=== PATIENT | male | born 1990 | race Caucasian/White ===

== ENCOUNTER 2023-08-08 12:08 | Emergency (ER) | payer BC, SELFPAY ==
[2023-08-08] VITALS (16 sets, daily range): BP systolic 156; BP diastolic 92; PULSE 79; RESP 20; TEMP 36.1; O2SAT 95–100
--- NOTE | 2023-08-08 12:22 | ED_ITS ---
HPI - General Adult General Time Seen by Provider: 12:22 Date Seen: 08/08/23 Chief complaint: Arrhythmia/Palpitations Stated complaint: heart issues,weakness Time Seen by Provider: 08/08/23 12:22 Source: patient and RN notes reviewed Mode of arrival: ambulatory Limitations: no limitations History of Present Illness HPI narrative: Dl is a very pleasant 33-year-old gentleman with history of tetralogy of Fallot repaired at age 1 who comes to the emergency room with symptoms of rapid heart rate and lightheadedness and dizziness. Chest and notes that approximate ly a 45 minutes prior to his arrival here he experienced 15 minutes of a strange pulse. He states that he felt like something was not right and took his pulse which was in the 50s. He describes his heart beating very hard. He then notes that he felt a vibration in his ears and was very tired and felt like he was sleepy. He thought this was unusual as he had just gotten up any slept well last night. Suddenly he states that his heart rate went way above 100 and he became very lightheaded and his hands were pale and he was dizzy. He states his heart rhythm felt weird at that time. He did not experience any chest tightness shortness of breath he has not had a cough for any ill exposures. He has not had this happen to him in the past. He last had cardiac evaluation when he was in his 20s. This took place at [facility]. He notes that the patch placed for his ?hole in the car heart? I assume this to be VSD did not entirely take and thus he still has a murmur. He has not on any blood thinners. He has not followed up since that time. Patient denies shortness of breath or cough during any of this episode which had resolved upon his arrival. Patient denies drug use or alcohol use. Currently on Suboxone. No other abnormalities changes in medication in the recent past. Related Data Home Medications Medication Instructions Recorded Confirmed buprenorphine 2 mg-naloxone 0.5 mg film sublingual 08/08/23 sublingual film Allergies Allergy/AdvReac Type Severity Reaction Status Date / Time amoxicillin [From Augmentin] Allergy Unknown Verified 08/08/23 12:27 clavulanic acid Allergy Unknown Verified 08/08/23 12:27 [From Augmentin] shellfish derived Allergy Unknown Verified 04/07/24 12:27 Review of Systems Status of ROS: Reports: 10 or more systems reviewed and unremarkable except as noted in History and below Const: Reports: fatigue; Denies: fever or chills Eyes: Denies: change in vision ENMT: Denies: throat pain or neck pain Cardio: Reports: palpitations and lightheadedness; Denies: chest pain, swelling of feet/ankles or shortness of breath with exertion Resp: Denies: shortness of breath or cough GI: Denies: abdominal pain, nausea or vomiting : Denies: painful urination Musculo: Denies: back pain or neck pain Neuro: Denies: headache Endo: Reports: fatigue Exam Narrative: Exam Narrative: Patient is alert and oriented. Very pleasant gentleman in no acute distress. External ears eyes nose clear. Neck is supple without lymphadenopathy. Face symmetrical. Heart with regular rate and rhythm. A holosystolic murmur is noted. I do think that it has occur central type of quality best heard at the left upper sternal border. No additional heart sounds are noted. Lungs are clear bilaterally. No evidence of increased fluid retention at this time. Lower extremities are without edema. Pedal pulses are symmetrical. Abdominal exam shows soft nontender no pulsating mass. Moving all extremities. Const: Vital Signs, click to edit/add: Vital Signs - 24 hr 08/08/23 12:19 08/08/23 12:20 08/08/23 12:20 Temperature 97.0 F L Pulse Rate [Pulse Oximeter] 79 Respiratory Rate 20 Blood Pressure [Ri ght Upper Arm] 156/92 H Pulse Oximetry 100 99 99 Oxygen Delivery Me thod Room Air 08/08/23 12:30 08/08/23 12:31 08/08/23 12:45 Temperature Pulse Rate [Pulse Oximeter] Respiratory Rate Blood Pressure [Ri ght Upper Arm] Pulse Oximetry 100 100 97 Oxygen Delivery Me thod 08/08/23 13:00 08/08/23 13:02 08/08/23 13:15 Temperature Pulse Rate [Pulse Oximeter] Respiratory Rate Blood Pressure [Ri ght Upper Arm] Pulse Oximetry 100 100 100 Oxygen Delivery Me thod 08/08/23 13:30 08/08/23 13:31 08/08/23 13:45 Temperature Pulse Rate [Pulse Oximeter] Respiratory Rate Blood Pressure [Ri ght Upper Arm] Pulse Oximetry 100 100 99 Oxygen Delivery Me thod 08/08/23 14:00 08/08/23 14:01 08/08/23 14:15 Temperature Pulse Rate [Pulse Oximeter] Respiratory Rate Blood Pressure [Ri ght Upper Arm] Pulse Oximetry 98 98 97 Oxygen Delivery Me thod 08/08/23 14:30 08/08/23 14:45 Temperature Pulse Rate [Pulse Oximeter] Respiratory Rate Blood Pressure [Ri ght Upper Arm] Pulse Oximetry 96 95 Oxygen Delivery Me thod Documenting provider has reviewed patient's vital signs: yes Course Course ED Course: At this time differential diagnosis includes but is not limited to atrial fibrillation, atrial flutter, episodic SVT, ventricular tachycardia or other arrhythmia, anxiety, biliary colic, COVID, dehydration. At this time will place IV give fluids. Also will check CBC, comprehensive panel, CRP, troponin, EKG, chest x-ray. Reevaluation(s) Reevaluation #1: I was alerted by nursing staff that patient had experienced pain at approximately 1330 hours. I do speak with Dl he describes a heaviness in his chest. He seems much more anxious and significant other is now present. Vital signs are reassuring although blood pressure has climbed to 156 systolic. He is not tachycardic. Will repeat EKG, give aspirin 324 mg p.o. and offer Ativan 0.5 mg. Will also reset clock in terms of troponin Reevaluation #2: Patient notes complete resolution of all symptoms after receiving Ativan. This occurred when significant other arrived. I did not witness any conversation between Dl and his visitor. He did seem somewhat anxious but now this is improved. I will be talking to Cardiology in regards to this gentleman as he is at increased risk for arrhythmia is secondary to his congenital heart condition. Vital Signs Vital signs: Initial Vital Signs Pulse Oximetry 100 08/08/23 12:19 Vital Signs Pulse Oximetry 100 08/08/23 12:19 Temperature 97.0 F L 08/08/23 12:20 Pulse Rate 79 08/08/23 12:20 Respiratory Rate 20 08/08/23 12:20 Blood Pressure 156/92 H 08/08/23 12:20 Pulse Oximetry 95 08/08/23 14:45 Oxygen Delivery Method Room Air 08/08/23 12:20 Medications Administered Medications: Discontinued Medications Generic Name Dose Route Start Last Admin Trade Name Claudia PRN Reason Stop Dose Admin Aspirin 324 mg 08/08/23 13:43 08/08/23 13:56 Aspirin 81 Mg Tab.Chew PO 08/08/23 13:44 324 mg ONCE ONE Administration Sodium Chloride 1,000 mls @ 1,000 mls/hr 08/08/23 12:38 08/08/23 13:56 0.9 % Sodium Chloride 1000 Ml IV 08/08/23 13:37 Infused .Q1H ENRIQUE Infusion Lorazepam 0.5 mg 08/08/23 13:43 08/08/23 13:56 Lorazepam 2 Mg/Ml Inj IVP 08/08/23 13:44 0.5 mg ONCE ONE Administration Medical Decision Making MDM Narrative Medical decision making narrative: 1. Atypical chest pain-patient noted to have some chest tightness that he describes as pressure in the emergency room. A repeat EKG was done immediately with no changes noted or acute findings. A right bundle-branch was present in both but this would be consistent with the type of surgery he underwent for tetralogy. Initial troponin was negative. We followed up with 2 subsequent troponins and they were also both negative. There does not appear to be evidence of an acute coronary event today but certainly we have to be cognizant of the fact that he is at higher risk for cardiac arrhythmia. None were witnessed during his monitoring here in the emergency room. Therefore do suggest outpatient follow-up with Holter or ZIO patch. I did have the pleasure of speaking with [facility]. They agree with this plan. Also recommend follow up with the batch weigher. Phone number for the clinic is given to Dl. Magnesium levels within normal limits CRP is negative and D-dimer within normal limits. No evidence of anemia or leukocytosis. CRP LFTs within normal limits. Negative for COVID influenza and RSV. 2. Disposition-home at this time. Return/seek medical attention for recurrence of symptoms. Follow-up with primary MD as per suggestion above. Medical Records Medical records reviewed: Yes I reviewed the patient's medical records Lab Data Lab results reviewed: Yes I reviewed the patient's lab results Labs: Lab Results 08/08/23 08/08/23 08/08/23 Range/Units 12:37 12:48 14:31 WBC 8.11 (4.50-11.00) K/uL RBC 5.09 (4.30-5.90) m/uL Hgb 15.2 (13.5-17.5) gm/dL Hct 44.8 (37.0-53.0) % MCV 88 (80-100) fL MCH 30 (26-34) pg MCHC 34 (32-36) gm/dL RDW Coeff of Jim 12.4 (11.5-15.5) % Plt Count 199 (140-440) K/uL Neut % (Auto) 52.3 (42.0-72.0) % Lymph % (Auto) 39.8 (20-44) % [place] % (Auto) 6.3 (0.0-11.0) % Eos % (Auto) 0.9 (0.0-7.0) % Baso % (Auto) 0.6 (0.0-3.0) % Neut # (Auto) 4.24 (1.7-7.0) K/uL Lymph # (Auto) 3.23 H (0.90-2.90) K/uL [place] # (Auto) 0.50 (0.00-0.90) K/UL Eos # (Auto) 0.07 (0.00-0.50) K/uL Baso # (Auto) 0.05 (0.00-0.30) K/uL Abs Immat Gran (auto) 0.01 (0.00-0.30) K/uL Imm/Tot Granulo (auto) 0.1 % D-Dimer Quant (PE/DVT) < 0.27 (0.00-0.50) ug/ml Sodium 137 (135-149) mmol/L Potassium 3.3 L (3.6-5.1) mmol/L Chloride 103 (96-114) mmol/L Carbon Dioxide 23 (20-32) mmol/L Anion Gap 11 (7-15) mEq/L BUN 16 (5-24) mg/dL Creatinine 0.7 (0.5-1.5) mg/dL Estimated GFR 123 ml/min Glucose 119 H (60-115) mg/dL Calcium 9.3 (8.4-10.6) mg/dL Magnesium 2.2 2.1 (1.5-2.6) mg/dL Total Bilirubin 0.9 (0.1-1.5) mg/dL AST 21 (12-35) U/L ALT 18 (4-50) U/L Alkaline Phosphatase 68 (40-150) U/L C-Reactive Protein < 0.5 L (0.5-1.0) mg/dL Total Protein 8.2 (6.0-8.3) g/dL Albumin 4.8 (3.3-5.0) g/dL SARS-CoV-2 (PCR) Negative SARS-CoV-2 (Negative) Influenza Type A (PCR) Negative PCR FLU A (Negative) Influenza Type B (PCR) Negative PCR FLU B (Negative) RSV (PCR) Negative PCR RSV (Negative) Lab Acknowledgement POC Troponin I 0.00 L (0.01-0.04) ng/ml 08/08/23 08/08/23 Range/Units 14:51 16:13 WBC (4.50-11.00) K/uL RBC (4.30-5.90) m/uL Hgb (13.5-17.5) gm/dL Hct (37.0-53.0) % MCV (80-100) fL MCH (26-34) pg MCHC (32-36) gm/dL RDW Coeff of Jim (11.5-15.5) % Plt Count (140-440) K/uL Neut % (Auto) (42.0-72.0) % Lymph % (Auto) (20-44) % [place] % (Auto) (0.0-11.0) % Eos % (Auto) (0.0-7.0) % Baso % (Auto) (0.0-3.0) % Neut # (Auto) (1.7-7.0) K/uL Lymph # (Auto) (0.90-2.90) K/uL [place] # (Auto) (0.00-0.90) K/UL Eos # (Auto) (0.00-0.50) K/uL Baso # (Auto) (0.00-0.30) K/uL Abs Immat Gran (auto) (0.00-0.30) K/uL Imm/Tot Granulo (auto) % D-Dimer Quant (PE/DVT) (0.00-0.50) ug/ml Sodium (135-149) mmol/L Potassium (3.6-5.1) mmol/L Chloride (96-114) mmol/L Carbon Dioxide (20-32) mmol/L Anion Gap (7-15) mEq/L BUN (5-24) mg/dL Creatinine (0.5-1.5) mg/dL Estimated GFR ml/min Glucose (60-115) mg/dL Calcium (8.4-10.6) mg/dL Magnesium (1.5-2.6) mg/dL Total Bilirubin (0.1-1.5) mg/dL AST (12-35) U/L ALT (4-50) U/L Alkaline Phosphatase (40-150) U/L C-Reactive Protein (0.5-1.0) mg/dL Total Protein (6.0-8.3) g/dL Albumin (3.3-5.0) g/dL SARS-CoV-2 (PCR) (Negative) Influenza Type A (PCR) (Negative) Influenza Type B (PCR) (Negative) RSV (PCR) (Negative) Lab Acknowledgement Test Added POC Troponin I 0.00 L (0.01-0.04) ng/ml Imaging Data Chest x-ray: Attestation: I have reviewed the pertinent imaging results. My impression: No obvious infiltrates. Radiologist's impression: FINDINGS: Normal size cardiac silhouette. Clear lung muhammad. No acute pulmonic infiltrates or CHF. IMPRESSION: Negative portable AP chest. Discharge Plan Discharge Clinical Impression: Atypical chest pain, Tachycardia Patient Disposition: Home, Self-Care Condition: Improved Additional Instructions: At this time I do suggest follow-up with your primary physician. I think you would benefit from a Holter monitor or Zio patch to monitor your heart rate. If you would feel like this again I would recommend returning to the emergency room for evaluation. I spoke with cardiology at [facility]. They agree with the Holter monitor or Zio patch to watch your heart rate. They also suggest that you establish with 1 of their electrophysiologists with your history of tetralogy. Two physicians are part of this croup and they are Dr. Nick and Dr Calvo. The phone number is [phone] Activity Level: No Restrictions Discharge Diet: Regular Prescriptions: No Action buprenorphine-naloxone 2-0.5 mg film sublingual Follow Up/Referrals: Lorri Kennedy MD [Primary Care Provider] - Stand Alone Forms: [employer] Info Instructions
--- NOTE | 2023-08-08 12:37 | XR_ITS ---
Patient: ALONSO CHRISTIANSON Facility:?[facility] Patient ID:?[id number] Site Patient ID:?[id number]. Site :?[id number] Study:?XRay-Chest PORTABLE-08/08/2023 1:00:45 PM Ordering Physician:?DR. RABAGO Final Report: INDICATION: Tachycardia. TECHNIQUE: Portable AP chest. FINDINGS: Normal size cardiac silhouette. Clear lung muhammad. No acute pulmonic infiltrates or CHF. IMPRESSION: Negative portable AP chest. Dictated by Tatyana Ziegler MD @ 08/08/2023 1:50:46 PM Signed by:?Tatyana Ziegler MD @08/08/2023 1:50:46 PM (Electronic Signature)
--- OUTSIDE RECORDS SUMMARY | 2023-08-08 12:52 | XMS_ITS | Referral Summary ---
Author Name Unknown Organization [facility] Address [facility] [place] [address] Care Team Providers Care Forex Trader Name Role Phone No Ref-Primary, Physician Primary Care Provider Allergies Active Allergy Reactions Criticality Noted Date Comments Amoxicillin-Pot Clavulanate 06/19/19 18 Medications Medication Sig Dispensed Refills Start Date End Date Status order for DMEIndications:Acut e pain of right knee Equipment being ordered: RIGHT knee immobilizer 1 Device 0 06/19/2017 Active oxyCODONE-acetamino phen (PERCOCET) 5-325 MG per tabletIndications:A cute pain of right knee Take 1-2 tablets by mouth every 6 hours as needed for pain maximum 8 tablet(s) per day 20 tablet 0 06/19/2017 Active Active Problems Problem Noted Date Diagnosed Date Chronic pain of right knee 02/22/2019 Aftercare following surgery of the musculoskelet al system 02/22/2019 Pain in joint, lower leg 03/05/2010 Other postprocedural status(V45.89) 03/05/2010 Resolved Problems Problem Noted Date Diagnosed Date Resolved Date iamPOSTSURGICAL STATES NEC 12/02/2005 0 01/14/2006 iamJOINT PAIN-LOWER LEG 12/02/200501/01 iamDISLOCAT PATELLA-CLOSED 08/25/2005 0 10/08/2005 iamPOSTSURGICAL STATES NEC 08/25/2005 0 10/08/2005 Social History Tobacco Use Types Packs/Day Years Used Date Smoking Tobacco: Never Assessed Sex and Gender Information Value Date Recorded Sex Assigned at Not on file Gender Identity Not on file Sexual Orientation Not on file Last Filed Vital Signs Vital Sign Reading Time Taken Comments Blood Pressure 133/82 06/19/2017 3:45 PM OFFICE INSPECTOR Pulse 70 06/19/2017 3:45 PM OFFICE INSPECTOR Temperature 36.8 ??C (98.3 ??F) 06/19/2017 3:45 PM CS T Respiratory Rate - - Oxygen Saturation 100% 06/19/2017 3:45 PM OFFICE INSPECTOR Inhaled Oxygen Concentration - - Weight - - Height - - Body Mass Index - - Plan of Treatment Not on file Care Teams Forex Trader Relationship Specialty Start Date End Date No Ref-Primary, Physician PCP - General 02/22/19
--- OUTSIDE RECORDS SUMMARY | 2023-08-08 12:52 | XMS_ITS | Clinical Summary ---
Author Name Unknown Organization [facility] Address [place], [place] [address] Care Team Providers Care Aircraft Rigging And Controls Mechanic Name Role Phone Pcp, No Primary Care Provider Unavailabl e Allergies Active Allergy Reactions Criticality Noted Date Comments Amoxicillin-Pot Clavulanate Hives 08/04/19 06 per H&P Penicillins Hives High 10/15/2014 Shellfish Containing Products Edema 2005 angioedema per H&P Medications Medication Sig Dispensed Refills Start Date End Date Status citalopram (CELEXA) 40 mg tabletIndications:Anx iety,Grief at loss of child Take 1 Tablet (40 mg) by mouth every morning. 90 Tablet 3 04/16/2021 Active buPROPion (WELLBUTRIN XL) 150 mg Extended-Release tabletIndications:Anx iety,Inattention TAKE 1 TABLET(150 MG) BY MOUTH EVERY MORNING 90 Tablet 1 07/19/2021 Active Active Problems Problem Noted Date Diagnosed Date Encounters for administrative purpose 07/22/2021 Inattention 06/06/2021 Narcotic dependence 04/16/2021 Tetralogy of Fallot 02/02/2019 Overview: Surgically corrected at 1 year old Last MRI 2014 Next MRI and cartilage he follow-up recommended for 2023 Grief at loss of child 06/05/2018 Overview: Lost son Milind to SIDS on 05/27/2018 at 5 weeks of age. Anxiety 11/26/2017 Left knee pain 09/19/2012 Dislocation of right patella 09/12/2012 Pain medication agreement 09/12/2012 Overview: Controlled substance agreement for Percocet 5/325mg one tab every 4hrs on file and signed 09/12/2012. [facility] Prescribing physician: Carine Cross MD and Tess Lentz PA-C Diagnosis: patellar dislocation S/P knee surgery 01/02/2010 Immunizations Name Administration Dates Next Due AMB Influenza, IIV4 PF (=>6 mos Flulaval,Fluzone Fluarix)(Flu Clinic Only) 02/01/2019,02/09/2018 DTP 12/07/1992, 0,10/07/1989,1988,1988 Hepatitis B (Peds) 08/16/1998,06/24/1998, 998 Hepatitis B, Unspecified 08/16/1998,06/24/1998,0 12/04/1997 Influenza A (H1N1), Inactivated 05/14/2009 Influenza A (H1N1), Inactiva david (Age >=3 Years) 05/14/2009 Influenza, IIV3 (Age 6-35 mos) 05/14/2009 Influenza, IIV3 (Age >=3 years) 05/14/2009 MMR 12/04/1997,03/13/1989 Polio Virus, Unspecified 04/14/1990,10/1989,03/13/1989,1987 Td (Age >=7 Years) 12/26/2002 Tdap 03/07/2013 Family History Medical History Relation Name Comments Other Brother has had 8 surge gina on same knee Heart Disease Father 2 stents Hypertension Father Good Health Mother Cancer Paternal Grandfather lymphom a/ deceised No Known Problems Sister Relation Name Status Comments Brother Father Mother Paternal Grandfather Sister Social History Tobacco Use Types Packs/Day Years Used Date Smoking Tobacco: Never Smokeless Tobacco: Current Chew Last attempted to quit: 10/15/2018 Tobacco Cessation:Counseling Given: Yes Alcohol Use Standard Drinks/Week Comments Not Currently 0 (1 standard drink = 0.6 oz pur e alcohol) PHQ-2 Answer Date Recorded PHQ-2 TOTAL SCORE 3 04/10/2021 Social Connections Answer Date Recorded Frequency of Communication with Friends and Fami ly Not on file 05/03/2021 Financial Resource Strain Answer Date R ecorded Difficulty of Paying Living Expenses Not on file 05/03/2021 Difficulty of Paying Living Expenses Not on file 05/03/2021 Sex and Gender Information Value Date Recorded Sex Assigned at Male 04/15/2021 1:23 AM BEAMER OPERATOR Gender Identity Male 04/15/2021 1:23 AM BEAMER OPERATOR Sexual Orientation Straight 04/15/2021 1: 23 AM BEAMER OPERATOR Obstetrics History Last Filed Vital Signs Vital Sign Reading Time Taken Comments Blood Pressure 119/68 11/12/2020 3:17 PM CDT Pulse 78 11/12/2020 3:17 PM CDT Temperature 36.7 ??C (98.1 ??F) 02/13/2020 10:46 AM C DT Respiratory Rate 16 03/14/2012 4:45 AM BEAMER OPERATOR Oxygen Saturation 97% 11/12/2020 3:17 PM CDT Inhaled Oxygen Concentration - - Weight 86.2 kg (190 lb) 11/12/2020 3:17 PM CDT Height 182.9 cm (6') 11/12/2020 3:17 PM CDT with shoe Body Mass Index 25.77 11/12/2020 3:17 PM CDT Plan of Treatment Health Maintenance Due Date Last Done Comments HIV for age 15-65 12/31/2002 Hepatitis C screening for age 18-79 12/31/2005 BMI (ht and wt on same day) for age 18+ 11/12/2021 11/12/2020, 02/09/2020, 02/02/2019, Additional history exists Depression screening for age 12+ 11/12/2021 11/12/2020, 02/15/2019, 11/26/2017 Lipids for age 35-44 12/31/2022 COVID-19 vaccine series (2022- season) 2023 Tetanus booster 03/07/2023 03/07/2013, 12/26/2002 Influenza for age 9-49 01/02/2024 , 02/09/2018, 05/14/2009, Additional history exists Tdap Completed 03/07/2013 Pneumococcal series for age 6-64 Aged Out No longer eligible based on patient's age to complete this topic Medical Devices Implanted Type Area Fisher Device Identifier Shelf Expiration Date Model / Serial / Lot Screw Canclls 4.0x45mm Part Thread 207.045 [employer]copious Software [id number] Implanted:Qty: 1 on 2010 at [facility] Ortho Imp.,Screw s & Plates Right: Knee Depuy C3 [employer]rics 207.045# / / Screw Cortex 4.5x60mm Self Tapping 214.860 120 Sports - [id number] Implanted:Qty: 1 on 2010 at [facility] Right: Knee Depuy [employer]3 [employer] 214.860# / / Advance Directives * Full Code (Latest Code Status on File) Date Activated Date Inactivated Comments 2010 6:23 PM 01/02/2010 4:17 PM * Full Code Date Activated Date Inactivated Comments 2010 5:02 PM 2010 5:05 PM * Full Code Date Activated Date Inactivated Comments 04/21/2006 2:25 AM 04/22/2006 1:35 AM * Full Code Date Activated Date Inactivated Comments 11/16/2005 3:05 PM 11/17/2005 1:26 PM * Full Code Date Activated Date Inactivated Comments 11/16/2005 10:01 AM 11/16/2005 3:05 PM Care Teams Aircraft Rigging And Controls Mechanic Relationship Specialty Start Date End Date Pcp, No . PCP - General 01/01/13
--- OUTSIDE RECORDS SUMMARY | 2023-08-08 12:52 | XMS_ITS | Clinical Summary ---
Author Name Unknown Organization [place] Address [facility] [place] [address] Care Team Providers Care Veterinarian Epidemiologist Name Role Phone No Ref-Primary, Physician Primary [...] Comments Blood Pressure 133/82 06/19/2017 3:45 PM CAMP ASSISTANT Pulse 70 06/19/2017 3:45 PM CAMP ASSISTANT Temperature 36.8 ??C (98.3 ??F) 06/19/2017 3:45 PM CS T Respiratory Rate - - Oxygen Saturation 100% 06/19/2017 3:45 PM CAMP ASSISTANT Inhaled Oxygen Concentration - - Weight - - Height - - Body Mass Index - - Plan of Treatment Not on file Care Teams Veterinarian Epidemiologist Relationship Specialty Start Date End Date No Ref-Primary, Physician PCP - General 02/22/19
--- OUTSIDE RECORDS SUMMARY | 2023-08-08 12:52 | XMS_ITS | Encounter Summary ---
Author Name Unknown Organization [facility] Address [address], [place] [address] Care Team Providers Care Cupola Tapper Name Role Phone Hayden Grey PA-C Primary Care Provider [phone] Encounter Details Date Type Department Care Team (Late st Contact Info) Description 10/15/2014 Correspondence None No Primary/Referring, Phy CHIROPRACTIC PATIENT LIAB NOTIFICATION AND AGRMNT Social History Tobacco Use Types Packs/Day Years Used Date Smoking Tobacco: Never Smokeless Tobacco: Current Chew Alcohol Use Standard Drinks/Week Comments Yes 0 (1 standard drink = 0.6 oz pur e alcohol) Occ Sex and Gender Information Value Date Recorded Sex Assigned at Not on file Gender Identity Not on file Sexual Orientation Not on file documented as of this encounter Plan of Treatment Not on file documented as of this encounter Visit Diagnoses Not on filedocumented in this encounter Care Teams Cupola Tapper Relationship Specialty Start Date End Date Hayden Grey PA-C [address] [place] [address] PCP - General Physician Clinical Exercise Physiologist 10/15/14 documented as of this encounter
--- OUTSIDE RECORDS SUMMARY | 2023-08-08 12:52 | XMS_ITS | Clinical Summary ---
Author Name Unknown Organization [facility] Address [address] [address] Care Team Providers Care Collection Officer Name Role Phone Hayden Grey PA-C Primary Care Provider [phone] Source Comments You are receiving this document as you are listed as the primary care provider,follow-up provider, or the patient has been referred to you for consultation.This is in compliance with the Medicare and[facility] E[facility] Incentive Program,which states Providers who transition their patient to another setting of careor provider of care or refers their patient to another provider of care shouldprovide summary care record for each transition of care or referral. [facility] Allergies Active Allergy Reactions Criticality Noted Date Comments Amoxicillin-Pot Clavulanate Hives 07/16/19 13 Penicillins Hives High 10/15/2014 Shellfish-Derived Products Hives 3 Medications Medication Sig Dispensed Refills Start Date End Date Status Ibuprofen 200 MG capsule Take 200 mg by mouth every 6 hours as needed. Active Active Problems Problem Noted Date Diagnosed Date Headache 10/19/2014 Closed dislocation of patella 09/28/2012 Narcotic dependence 11/13/2011 Immunizations Name Administration Dates Next Due HepB Ped/Adol (0-18 yrs) 08/16/1998,06/24/1998,0 12/04/1997 Tdap 03/07/2013 Family History Medical History Relation Name Comments Cancer Maternal Grandfather Diabetes Maternal Grandmother Relation Name Status Comments Maternal Grandfather Maternal Grandmother Social History Tobacco Use Types Packs/Day Years [...] Sign Reading Time Taken Comments Blood Pressure 148/90 10/15/2014 9:10 AM CDT Pulse 72 10/15/2014 9:10 AM CDT Temperature 36.8 ??C (98.2 ??F) 10/15/2014 9:10 AM CD T Respiratory Rate 18 10/15/2014 9:10 AM CDT Oxygen Saturation - - Inhaled Oxygen Concentration - - Weight 93.9 kg (207 lb) 06/28/2017 7:57 AM TALENT DEVELOPMENT DIRECTOR Height 180.3 cm (5' 11) 06/28/2017 7:57 AM TALENT DEVELOPMENT DIRECTOR Body Mass Index 28.87 06/28/2017 7:57 AM TALENT DEVELOPMENT DIRECTOR Plan of Treatment Health Maintenance Due Date Last Done Comments Hep C Screening (Preventive Services) 1988 HIV Screening (Preventive Services) 2004 Adult Preventive Visit 12/31/2005 Cholesterol 12/31/2022 COVID-19 Vaccine ( season) 2023 Influenza (#1) 2023 02/01/2019, 01/31, 05/14/2009, Additional history exists DTaP/Tdap/Td (7 - Tdap) 03/07/2023 03/07/20 13, 12/26/2002, 12/07/1992, Additional history exists Zoster/Shingles (1 of 2) 12/31/2037 IPV (Polio) Completed 04/14/1990, 10/1989, 03/13/1989, Additional history exists HepB Completed 08/16/1998, 06/04, 12/04/1997 HPV Vaccine Aged Out No longer eligi ble based on patient's age to complete this topic HepA Aged Out No longer eligi ble based on patient's age to complete this topic Hib Aged Out No longer eligi ble based on patient's age to complete this topic MCV4 Aged Out No longer eligi ble based on patient's age to complete this topic Pneumococcal Aged Out No longer eligi ble based on patient's age to complete this topic Care Teams Collection Officer Relationship Specialty Start Date End Date Hayden Grey PA-C [address] [place] [address] PCP - General Physician Workforce Services Representative 10/15/14
--- OUTSIDE RECORDS SUMMARY | 2023-08-08 12:52 | XMS_ITS | Encounter Summary ---
Author Name Unknown Organization [facility] Address [address] [place] [address] Care Team Providers Care Chemical Processing Technician Name Role Phone No Ref-Primary, Physician Primary Care Provider No Ref-Primary, Physician Primary Care Provider Encounter Details Date Type Department Care Team (Late st Contact Info) Description 11/26/2011 Orders Only [facility] [address] [place] [address] [phone] Kelly Priest Recurrent dislocation of knee (Primary Dx) Social History Tobacco Use Types Packs/Day Years Used Date Smoking Tobacco: Never Assessed Sex and Gender Information Value Date Recorded Sex Assigned at Not on file Gender Identity Not on file Sexual Orientation Not on file documented as of this encounter Plan of Treatment Not on file documented as of this encounter Visit Diagnoses Diagnosis Recurrent dislocation of knee- Primary Recurrent dislocation of lower leg joint documented in this encounter Care Teams Chemical Processing Technician Relationship Specialty Start Date End Date No Ref-Primary, Physician PCP - General 06/19/17 02/21/19 No Ref-Primary, Physician PCP - General 02/22/19 documented as of this encounter
[2023-08-08 12:56] LABS: Basophils Absolute Auto 0.05 K/uL (0.00-0.30); Basophils Percent Auto 0.6 % (0.0-3.0); Eosinophils Absolute Auto 0.07 K/uL (0.00-0.50); Eosinophils Percent Auto 0.9 % (0.0-7.0); Hematocrit 44.8 % (37.0-53.0); Hemoglobin* 15.2 gm/dL (13.5-17.5); Immature Granulocytes Abs Auto 0.01 K/uL (0.00-0.30); Immature Granulocytes Pct Auto 0.1 %; Lymphocytes Absolute Auto 3.23 K/uL (0.90-2.90); Lymphocytes Percent Auto 39.8 % (20-44); Mean Corpuscular HGB Conc 34 gm/dL (32-36); Mean Corpuscular Hemoglobin 30 pg (26-34); Mean Corpuscular Volume 88 fL (80-100); Monocytes Percent Auto 6.3 % (0.0-11.0); Neutrophils Absolute Auto 4.24 K/uL (1.7-7.0); Neutrophils Percent Auto 52.3 % (42.0-72.0); Platelet Count* 199 K/uL (140-440); RDW Coefficient of Variation % 12.4 % (11.5-15.5); Red Blood Count 5.09 m/uL (4.30-5.90); White Blood Count* 8.11 K/uL (4.50-11.00)
[2023-08-08] MEDS: 0.9 % SODIUM CHLORIDE 1000 ml 1,000 ML IV (12:56)
[2023-08-08 13:00] LABS: Slide Review Reflex No
[2023-08-08 13:19] LABS: Albumin* 4.8 g/dL (3.3-5.0); Chloride* 103 mmol/L (96-114)
[2023-08-08 13:20] LABS: Potassium* 3.3 mmol/L (3.6-5.1); Sodium* 137 mmol/L (135-149)
[2023-08-08 13:22] LABS: Bilirubin Total* 0.9 mg/dL (0.1-1.5); Creatinine* 0.7 mg/dL (0.5-1.5); Estimated Glomerular Filt Rate 123 ml/min
[2023-08-08 13:23] LABS: Alanine Aminotransferase* 18 U/L (4-50); Alkaline Phosphatase* 68 U/L (40-150); Anion Gap 11 mEq/L (7-15); Aspartate Amino Transferase* 21 U/L (12-35); Blood Urea Nitrogen* 16 mg/dL (5-24); Calcium* 9.3 mg/dL (8.4-10.6); Carbon Dioxide* 23 mmol/L (20-32); Glucose* 119 mg/dL (60-115); Magnesium* 2.2 mg/dL (1.5-2.6); Total Protein* 8.2 g/dL (6.0-8.3)
[2023-08-08 13:30] LABS: C Reactive Protein* < 0.5 mg/dL (0.5-1.0)
[2023-08-08 13:39] LABS: D Dimer Quantitative* < 0.27 ug/ml (0.00-0.50)
[2023-08-08 13:45] LABS: PCR FLU A Negative PCR FLU A (Negative); PCR FLU B Negative PCR FLU B (Negative); PCR RSV Negative PCR RSV (Negative); SARS PCR* Negative SARS-CoV-2 (Negative)
[2023-08-08] MEDS: ASPIRIN 81 MG TAB.CHEW 324 MG PO (13:56)
[2023-08-08] MEDS: LORazepam 2 MG/ML inj 0.5 MG IVP (13:56)
[2023-08-08 16:30] LABS: Magnesium* 2.1 mg/dL (1.5-2.6)
[2023-09-02 08:53] LABS: Troponin, Point-of-Care* 0.01 ng/ml (0.01-0.04)
== END 2023-08-08 17:16 | disposition home or self-care (01) ==
PROVIDERS: Emergency Provider Family Medicine; PCP Family Medicine
DX: R07.9 Chest pain, unspecified (principal); R00.0 Tachycardia, unspecified
CPT/HCPCS: 36415; 71045; 80053; 83735; 84484; 85025; 85379; 86140; 87631; 93005; 96374; 99284; 99285; A9270; J2060; J7030

== ENCOUNTER 2023-08-23 20:01 | Emergency (ER) | payer BC, SELFPAY ==
[2023-08-23 20:23] VITALS: BP 148/105; PULSE 96; RESP 16; TEMP 37.7; O2SAT 98; BMI 26.5
--- NOTE | 2023-08-23 20:39 | ED_ITS ---
HPI - Chest Pain General Time Seen by Provider: 20:25 Date Seen: 08/23/23 Chief Complaint: Chest Pain Stated Complaint: Heart/L side pain radiating to back and neck Time Seen by Provider: 08/23/23 20:23 Source: patient, RN notes reviewed and old records reviewed Mode of arrival: ambulatory Limitations: no limitations History of Present Illness HPI narrative: Patient is a 33-year-old male with past medical history of tetralogy of Fallot who presents to the emergency department for evaluation of chest pain. Patient reports that tonight around 05/22/2044 he was cleaning a kitchen when all the sudden he felt as if his heart was racing and had some pain on the left side of his chest. Patient reports elevated heart rate up into the 120s, palpitations, felt that his heart was pounding. Patient states that he also noticed that his blood pressure was elevated at 180 5/118 tried to take his blood pressure himself. Patient reports some numbness sensation on the left side of his chest and some pain in his back. Patient states he was seen in the emergency department 1-2 weeks ago for similar symptoms at that time he had an unremarkable workup. Since that time patient is follow up with his primary care provider and everything was okay. Patient is currently wearing a Zio patch until Wednesday, is an echocardiogram scheduled for tomorrow. Patient is following up with line servicer on 09/10/2023. Patient reports he does have a history of anxiety and takes medications daily. Patient states that while he has a cleaning his kitchen his 4 & 2 year old were crying and screaming because they did not want to go to bed. Patient states he is feeling better since arriving to the ED but wanted to make sure everything was okay given his cardiac history. Patient denies any history of blood clots,. patient denies any recent prolonged immobilization, no recent travel, no lower extremity edema, no calf tenderness, no other complaints. Related Data Home Medications Medication Instructions Recorded Confirmed buprenorphine 2 mg-naloxone 0.5 mg film sublingual 08/08/23 sublingual film Allergies Allergy/AdvReac Type Severity Reaction Status Date / Time amoxicillin [From Augmentin] Allergy Unknown Verified 08/08/23 12:27 clavulanic acid Allergy Unknown Verified 08/08/23 12:27 [From Augmentin] shellfish derived Allergy Unknown Verified 08/08/23 12:27 Review of Systems Narrative General: No fevers or chills Skin: No rash or diaphoresis Eyes: No eye redness or discharge Ears/Nose/Throat: No rhinorrhea or nasal congestion Respiratory: No cough or shortness of breath Cardiovascular: + chest pain, palpitations Gastrointestinal: No abdominal pain, nausea, vomiting, or diarrhea Genitourinary: No urinary frequency, hematuria, or dysuria Musculoskeletal: No arthralgias or myalgias Neurologic: No numbness or weakness Hematologic/Lymphatic/Immunologic: No leg swelling, no easy bruising/bleeding Endocrine: No polyuria/polydipsia PFSH [facility] Social History Smoking Status: Never smoker Do you use any of these nicotine containing products: Vaping Products Second hand tobacco smoke exposure: No How often do you have a drink containing alcohol: never How often do you have six or more drinks on one occasion: Never AUDIT-C Alcohol total score: 0 Non-prescribed substance use: denies use service: No Exam Narrative Exam Narrative: General: Afebrile, mildly anxious, mild distress HEENT: Normocephalic, atraumatic, conjunctiva normal. MMM Neck: non-tender, supple Cardio: regular rate. regular rhythm, +murmur Resp: Normal work of breathing, no respiratory distress, lungs clear bilaterally, no wheezing, rhonchi, rales Chest/Back: no visual signs of trauma, no CVA tenderness Abdomen: soft, non distension, no tenderness, no peritoneal signs Neuro: alert and fully oriented. CN II-XII grossly intact. Grossly normal strength and sensation in all extremities. MSK: no deformities. Normal range of motion, no lower extremity edema, no calf tenderness Integumentary/Skin: no rash visualized, normal color Psych: normal affect, normal behavior Const Vital Signs, click to edit/add: Vital Signs - 24 hr 08/23/23 20:23 08/23/23 21:08 08/23/23 21:08 Temperature 99.8 F H 99.4 F Pulse Rate [Pulse Oximeter] 96 77 Respiratory Rate 16 16 Blood Pressure [Right Upper Arm] 148/105 H 142/95 H Pulse Oximetry 98 96 96 Oxygen Delivery Method Room Air Room Air Room Air Course Course ED Course: [age] year male with history of tetralogy of Fallot with symptoms from for evaluation of chest pain. Upon arrival patient is nontoxic appearing, afebrile, mildly anxious in mild distress. Differential diagnosis includes but is not limited to arrhythmia versus atrial fibrillation /flutter versus SVT versus ACS versus PE versus atypical chest pain versus anxiety versus Metabolic/ electrolyte abnormality among others. Upon arrival patient was placed on cardiac monitoring EKG was performed. I reviewed EKG which demonstrates normal sinus rhythm with a ventricular rate of 73 beats per minute, normal axis, with no acute ischemic change, incomplete right bundle-branch block which was seen on prior EKG. No significant change when compared to 08/08/2023. I reviewed complement of labs which were unremarkable, white blood cell count 8.6, hemoglobin 14.2, no acute metabolic or electrolyte abnormality, no transaminitis. Initial high sensitive troponin negative with repeat 2 hour troponin negative. On re-evaluation patient continues resting comfortably, no distress. Patient does report significant improvement of symptoms after being in the emergency department after having Ativan. Low suspicious for acute ACS given EKG and troponin with no acute ischemic change. Patient with no clinical signs or symptoms of acute infection, no fever, cough, shortness of breath, no leukocytosis. Chest x-ray deferred at this time. I did personally review chest x-ray performed on 08/08/2023, consider repeat x-ray however at this time given improvement of symptoms, no clinical evidence of fluid overload or infection deferred repeat chest x-ray at this time. No evidence of acute arrhythmia or tachycardia while in the emergency department on EKG or cardiac monitoring. Patient does have a Zio patch in place so will follow up with Cardiology on results. Low suspicious for PE. Patient with no tachycardia, no hypoxia, no respiratory distress. Perc negative. (per chart review patient also recently had negative D-dimer). I discussed results with patient on re-evaluation patient continues to be resting comfortably. Patient feels comfortable discharge home. Patient has echocardiogram in the morning, and is agreeable to close outpatient follow-up with his primary care provider and Cardiology. Strict return precautions discussed. Patient understands and agrees the plan. Vital Signs Vital signs: Initial Vital Signs Temperature 99.8 F H 08/23/23 20:23 Temperature Source Temporal Artery Scan 08/23/23 20:23 Pulse Rate 96 08/23/23 20:23 Pulse Rhythm Regular 08/23/23 20:23 Respiratory Rate 16 08/23/23 20:23 Blood Pressure 148/105 H 08/23/23 20:23 Blood Pressure Mean 119 H 08/23/23 20:23 Blood Pressure Position Sitting 08/23/23 20:23 Pulse Oximetry 98 08/23/23 20:23 Oxygen Delivery Method Room Air 08/23/23 20:23 Vital Signs Temperature 99.8 F H 08/23/23 20:23 Pulse Rate 96 08/23/23 20:23 Respiratory Rate 16 08/23/23 20:23 Blood Pressure 148/105 H 08/23/23 20:23 Pulse Oximetry 98 08/23/23 20:23 Oxygen Delivery Method Room Air 08/23/23 20:23 Temperature 99.4 F 08/23/23 21:08 Pulse Rate 77 08/23/23 21:08 Respiratory Rate 16 08/23/23 21:08 Blood Pressure 142/95 H 08/23/23 21:08 Pulse Oximetry 96 08/23/23 21:08 Oxygen Delivery Method Room Air 08/23/23 21:08 Medications Administered Medications: Discontinued Medications Generic Name Dose Route Start Last Admin Trade Name Valenteq PRN Reason Stop Dose Admin Lorazepam 0.5 mg 08/23/23 20:56 08/23/23 21:03 Lorazepam 0.5 Mg Tablet PO 08/23/23 20:57 0.5 mg ONCE ONE Administration MDM - Chest Pain Lab Data Labs: Lab Results 08/23/23 08/23/23 Range/Units 20:35 22:34 WBC 8.61 (4.50-11.00) K/uL RBC 4.76 (4.30-5.90) m/uL Hgb 14.2 (13.5-17.5) gm/dL Hct 42.1 (37.0-53.0) % MCV 88 (80-100) fL MCH 30 (26-34) pg MCHC 34 (32-36) gm/dL RDW Coeff of Jim 12.0 (11.5-15.5) % Plt Count 210 (140-440) K/uL Neut % (Auto) 65.4 (42.0-72.0) % Lymph % (Auto) 27.1 (20-44) % [place] % (Auto) 6.2 (0.0-11.0) % Eos % (Auto) 0.6 (0.0-7.0) % Baso % (Auto) 0.6 (0.0-3.0) % Neut # (Auto) 5.64 (1.7-7.0) K/uL Lymph # (Auto) 2.33 (0.90-2.90) K/uL [place] # (Auto) 0.50 (0.00-0.90) K/UL Eos # (Auto) 0.05 (0.00-0.50) K/uL Baso # (Auto) 0.05 (0.00-0.30) K/uL Abs Immat Gran (auto) 0.01 (0.00-0.30) K/uL Imm/Tot Granulo (auto) 0.1 % Sodium 140 (135-149) mmol/L Potassium 3.6 (3.6-5.1) mmol/L Chloride 106 (96-114) mmol/L Carbon Dioxide 29 (20-32) mmol/L Anion Gap 5 L (7-15) mEq/L BUN 15 (5-24) mg/dL Creatinine 0.9 (0.5-1.5) mg/dL Estimated Creat Clear 122.01 Estimated GFR 114 ml/min Glucose 122 H (60-115) mg/dL Calcium 9.1 (8.4-10.6) mg/dL Total Bilirubin 1.0 (0.1-1.5) mg/dL AST 22 (12-35) U/L ALT 14 (4-50) U/L Alkaline Phosphatase 65 (40-150) U/L Troponin I < 0.01 L < 0.01 L (0.01-0.04) ng/mL Total Protein 7.8 (6.0-8.3) g/dL Albumin 4.6 (3.3-5.0) g/dL Discharge Plan Discharge Clinical Impression: Chest pain Patient Disposition: Home, Self-Care Condition: Improved Additional Instructions: Please follow-up with your primary care provider in the next 3-5 days for further evaluation of follow-up. Please call to schedule an appointment. Please follow-up with your outpatient testing (echocardiogram and zio patch) and follow up with your line servicer as previously directed. Please return to the emergency department if you develop recurrent or worsening chest pain, shortness of breath, new or worsening symptoms. It was a pleasure taking care of you today. We hope you feel better soon Prescriptions: No Action buprenorphine-naloxone 2-0.5 mg film sublingual Follow Up/Referrals: Lorri Kennedy MD [Primary Care Provider] - Stand Alone Forms: [employer]tron Info Instructions
[2023-08-23 21:03] LABS: Basophils Absolute Auto 0.05 K/uL (0.00-0.30); Basophils Percent Auto 0.6 % (0.0-3.0); Eosinophils Absolute Auto 0.05 K/uL (0.00-0.50); Eosinophils Percent Auto 0.6 % (0.0-7.0); Hematocrit 42.1 % (37.0-53.0); Hemoglobin* 14.2 gm/dL (13.5-17.5); Immature Granulocytes Abs Auto 0.01 K/uL (0.00-0.30); Immature Granulocytes Pct Auto 0.1 %; Lymphocytes Absolute Auto 2.33 K/uL (0.90-2.90); Lymphocytes Percent Auto 27.1 % (20-44); Mean Corpuscular HGB Conc 34 gm/dL (32-36); Mean Corpuscular Hemoglobin 30 pg (26-34); Mean Corpuscular Volume 88 fL (80-100); Monocytes Percent Auto 6.2 % (0.0-11.0); Neutrophils Absolute Auto 5.64 K/uL (1.7-7.0); Neutrophils Percent Auto 65.4 % (42.0-72.0); Platelet Count* 210 K/uL (140-440); Red Blood Count 4.76 m/uL (4.30-5.90); White Blood Count* 8.61 K/uL (4.50-11.00)
[2023-08-23] MEDS: LORazepam 0.5 MG TABLET PO (21:03)
[2023-08-23 21:08] VITALS: BP 142/95; PULSE 77; RESP 16; TEMP 37.4; O2SAT 96
[2023-08-23 21:10] VITALS: BP 143/89; PULSE 86; RESP 16; O2SAT 98
[2023-08-23 21:10] LABS: Slide Review Reflex No
--- OUTSIDE RECORDS SUMMARY | 2023-08-23 21:10 | XMS_ITS | Clinical Summary ---
Author Name Unknown Organization [facility] Address [facility] [place] [address] Care Team Providers Care Senior Wealth Advisor Name Role Phone No Ref-Primary, Physician Primary Care Provider Allergies Active Allergy Reactions Criticality Noted Date Comments Amoxicillin-Pot Clavulanate 06/19/19 18 Medications Medication Sig Dispensed Refills Start Date End Date Status order for DMEIndications:Acut e pain of right knee Equipment being ordered: RIGHT knee immobilizer 1 Device 06/19/2017 Active oxyCODONE-acetamino phen (PERCOCET) 5-325 MG per tabletIndications:A cute pain of right knee Take 1-2 tablets by mouth every 6 hours as needed for pain maximum 8 tablet(s) per day 20 tablet 06/19/2017 Active Active Problems Problem Noted Date [...] Comments Blood Pressure 133/82 06/19/2017 3:45 PM PHLEBOTOMIST Pulse 70 06/19/2017 3:45 PM PHLEBOTOMIST Temperature 36.8 ??C (98.3 ??F) 06/19/2017 3:45 PM CS T Respiratory Rate - - Oxygen Saturation 100% 06/19/2017 3:45 PM PHLEBOTOMIST Inhaled Oxygen Concentration - - Weight - - Height - - Body Mass Index - - Plan of Treatment Not on file Care Teams Senior Wealth Advisor Relationship Specialty Start Date End Date No Ref-Primary, Physician PCP - General 02/22/19
--- OUTSIDE RECORDS SUMMARY | 2023-08-23 21:10 | XMS_ITS | Clinical Summary ---
Author Name Unknown Organization [facility] Address [address], [place] [address] Care Team Providers Care Valve Lapper Name Role Phone Hayden Grey PA-C Primary Care Provider [phone] Source Comments You are receiving this document as you are listed as the primary care provider,follow-up provider, or the patient has been referred to you for consultation.This is in compliance with the Medicare and[facility] Hospital[facility] EHR Incentive Program,which states Providers who transition their patient to another setting of careor provider of care or refers their patient to another provider of care shouldprovide summary care record for each transition of care or referral. [facility] Allergies Active Allergy Reactions Criticality Noted Date [...] 93.9 kg (207 lb) 06/28/2017 7:57 AM PIE TOPPER Height 180.3 cm (5' 11) 06/28/2017 7:57 AM PIE TOPPER Body Mass Index 28.87 06/28/2017 7:57 AM PIE TOPPER Plan of Treatment Health Maintenance Due Date [...] age to complete this topic Care Teams Valve Lapper Relationship Specialty Start Date End Date Hayden Grey PA-C [address] [place] [address] PCP - General Physician Ironer 10/15/14
--- OUTSIDE RECORDS SUMMARY | 2023-08-23 21:10 | XMS_ITS | Referral Summary ---
Author Name Unknown Organization [facility] Address [facility] [place] [address] Care Team Providers Care Enrollment Consultant Name Role Phone No Ref-Primary, Physician Primary [...] Comments Blood Pressure 133/82 06/19/2017 3:45 PM ROOF FIXER Pulse 70 06/19/2017 3:45 PM ROOF FIXER Temperature 36.8 ??C (98.3 ??F) 06/19/2017 3:45 PM CS T Respiratory Rate - - Oxygen Saturation 100% 06/19/2017 3:45 PM ROOF FIXER Inhaled Oxygen Concentration - - Weight - - Height - - Body Mass Index - - Plan of Treatment Not on file Care Teams Enrollment Consultant Relationship Specialty Start Date End Date No Ref-Primary, Physician PCP - General 02/22/19
--- OUTSIDE RECORDS SUMMARY | 2023-08-23 21:10 | XMS_ITS | Encounter Summary ---
Author Name Unknown Organization [facility] Address [address], [place] [address] Care Team Providers Care City Editor Name Role Phone Hayden Grey PA-C Primary Care Provider [phone] Encounter Details Date Type Department Care Team [...] on filedocumented in this encounter Care Teams City Editor Relationship Specialty Start Date End Date Hayden Grey PA-C [address] [place] [address] PCP - General Physician Finished Metal Repairer 10/15/14 documented as of this encounter
--- OUTSIDE RECORDS SUMMARY | 2023-08-23 21:10 | XMS_ITS | Encounter Summary ---
Author Name Unknown Organization [facility] Address [address] [place] [address] Care Team Providers Care Sales & Service Associate Name Role Phone No Ref-Primary, Physician Primary Care Provider No Ref-Primary, Physician Primary Care Provider Encounter Details Date Type Department Care Team (Late st Contact Info) Description 11/26/2011 Orders Only [facility] [address] [place] [phone] Kelly Priest Recurrent dislocation of knee (Primary [...] joint documented in this encounter Care Teams Sales & Service Associate Relationship Specialty Start Date End Date No Ref-Primary, Physician PCP - General 06/19/17 02/21/19 No Ref-Primary, Physician PCP - General 02/22/19 documented as of this encounter
--- OUTSIDE RECORDS SUMMARY | 2023-08-23 21:11 | XMS_ITS | Continuity of Care Document ---
Author Name Unknown Organization [facility] Address [address] [place] [address] Phone Care Team Providers Care Heating And Cooling Systems Engineer Name Role Phone Mallory Hanson PT Unavailable Unavailable Allergies, Adverse Reactions, Alerts Substance Reaction Status Criticality POTASSIUM CLAVULANATE Hives Active No Inf ormation AMOXICILLIN TRIHYDRATE Hives Active No In formation WARNIN allergy(ies) could not be collected because the type is not supported. Please contact the source practice for further details. Medications Medication Instructions Dosage Effective Dates (start - stop) Status Comments Motrin IB 200 mg tablet take 1 tablet by oral route every 6 hours as needed with food 200 MG - Active gabapentin 300 mg capsule take 1 capsule by ORAL route at bedtime x5 days, then as tolerated add one in the am x5 days, then as tolerated add one in the afternoon. - No Longer Active Procedures Procedure Date Offic/outpt E&m New Mod-hi 45 3 QA DONE Advance Directives Directive Yes / No Effective Date File Name No Information Encounters Encounter Description Practice Location Reason(s) For Visit Diagnoses Date Provider Providers Copied on Encounter [facility], [address], [place], [place], [id number], [place] tel:[phone] Deb LEDBETTER 0412 No Information 3 Mreedith Tejada. [address], [address], [place], [place], [id number], [place]. tel:[phone] Referring Provider: REFERRAL JERAD, CASS. Offic/outpt E&m New Mod-hi 45 Damien [facility], [address], [place], [place], [id number], [place] tel:[phone] [facility] No Information 201 3 No Information Referring Provider: REFERRAL SELF, [place]. Family History Family Member Type Diagnosis Age At Onset No Information Payers Payer name Insurance type Covered green party ID Authorvaishali neely(s) Blue Plus BL [id number] Social History Type Description Quantity Date Captured Comments Alcohol Use Details Caffeine Use Details Unknown Tobacco Use Status No Information Smoking Status Never Smoker Non-Smoking Tobacco Use Details : No Details Available : No Details Available Sex Male Chief Complaint And Reason For Visit No Information Reason For Referral Reason For Referral No Information History Of Present Illness Encounter Date Complaint History Of Prese nt Illness No Information Functional Status Date Functional Assessmen t No Information Instructions Date Instruction Additional Infor mation No Information Assessments Type Assessment Date No Information Patient Care Teams Name Effective Dates (start - stop) Status Members No Information
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
--- OUTSIDE RECORDS SUMMARY | 2023-08-23 21:11 | XMS_ITS | Clinical Summary ---
Author Name Unknown Organization [facility] Address [place], [place] [address] Care Team Providers Care [employer] Name Role Phone Lorri Kennedy MD Primary Care Provider Allergies Active Allergy Reactions Criticality Noted Date Comments Amoxicillin-Pot Clavulanate Hives 08/04/19 06 per H&P Penicillins Hives High 10/15/2014 Shellfish Containing Products Edema 2005 angioedema per H&P Medications Medication Sig Dispensed Refills Start Date End Date Status buprenorphine-nal oxone (SUBOXONE) 2-0.[address] 1 Film under the tongue once daily. 07/22/2023 Active hydrOXYzine HCL (ATARAX) 25 mg tabletIndications :Anxiety Take 0.5-1 Tablets (12.5-25 mg) by mouth every 6 hours if needed for Anxiety. 30 Tablet 08/13/2023 Active citalopram (CELEXA) 20 mg tabletIndications :Anxiety Take 1 Tablet (20 mg) by mouth once daily. Start with 1/2 tablet (10 mg) x 1 week, then increase to full tablet (20 mg) daily. 30 Tablet 08/20/2023 Active citalopram (CELEXA) 40 mg tabletIndications :Anxiety,Grief at loss of child Take 1 Tablet (40 mg) by mouth every morning. 90 Tablet 3 04/16/2021 08/13/2023 Discontinued (*Med complete/Reg imen complete/Lev el of care change) buPROPion (WELLBUTRIN XL) 150 mg Extended-Release tabletIndications :Anxiety,Inattent ion TAKE 1 TABLET(150 MG) BY MOUTH EVERY MORNING 90 Tablet 1 07/19/2021 08/13/2023 Discontinued (*Med complete/Reg imen complete/Lev el of care change) escitalopram oxalate (LEXAPRO) 10 mg tabletIndications :Anxiety Take 1 Tablet (10 mg) by mouth every morning. Start with 5 mg for first 4 days to decrease side effects. Then advance to 10 mg daily. 60 Tablet 08/16/2023 08/20/2023 Discontinued (*Patient states no longer taking) Active Problems Problem Noted Date Diagnosed Date Encounters for administrative purpose 07/22/2021 Inattention 06/06/2021 Narcotic dependence 04/16/2021 Tetralogy of Fallot 02/02/2019 Overview: Surgically corrected at 1 year old Last MRI 2013 Next MRI and cartilage he follow-up recommended for 2023 Grief at loss of child 06/05/2018 Overview: Lost son Milind to [facility] on 05/27/2018 at 5 weeks of age. Anxiety 11/26/2017 Left knee pain 09/19/2012 Dislocation of right patella 09/12/2012 Pain medication agreement 09/12/2012 Overview: Controlled substance agreement for Percocet 5/325mg one tab every 4hrs on file and signed 09/12/2012. Designated pharmacy: [facility] Prescribing physician: Carine Cross MD and Tess Lentz PA-C Diagnosis: patellar dislocation S/P knee surgery 01/02/2010 Encounters Date Type Department Care Team Description 08/13/2023 2:50 PM CDT Office Visit [facility] [address] [place] [address] Lorri Kennedy MD ER Follow up ([facility] 08/08/2023) 08/13/2023 Travel 08/12/2023 Telephone [facility] [address] [facility] [address] Lorri Kennedy MD Appointment 08/11/2023 Telephone [facility] [address] [place] [address] Lorri Kennedy MD 08/08/2023 Orders Only [facility] Scanner 1 scan: (1-Ord) EKG, 08/08/2023 08/08/2023 Orders Only [facility] Scanner 1 scan: (1-Ord) [facility], MULTIPLE LAB RESULT, 08/08/2023 08/08/2023 Orders Only [facility] Scanner 1 scan: (1-Ord) [facility], XR CHEST 1V PORTABLE, 08/08/2023 from Last 3 Months Immunizations Name Administration Dates Next Due AMB Influenza, IIV4 PF (=>6 mos Flulaval,Fluzone Fluarix)(Flu Clinic Only) 02/01/2019,02/09/2018 DTP 12/07/1992, 0,10/07/1989,1988,1988 Hepatitis B (Peds) 08/16/1998,06/24/1998, 998 Hepatitis B, Unspecified 08/16/1998,06/24/1998,0 12/04/1997 Influenza A (H1N1), Inactivated 05/14/2009 Influenza A (H1N1), Inactiva david (Age >=3 Years) 05/14/2009 Influenza, IIV3 (Age 6-35 mos) 05/14/2009 Influenza, IIV3 (Age >=3 years) 05/14/2009 MMR 12/04/1997,03/13/1989 Polio Virus, Unspecified 04/14/1990,0610/1989,03/13/1989,1987 Td (Age >=7 Years) 12/26/2002 Tdap 03/07/2013 [...] Used Date Smoking Tobacco: Never Smokeless Tobacco: Former Chew Quit: 10/15/2018 Tobacco Cessation:Counseling Given: Not Answered Alcohol Use Standard Drinks/Week Comments Not Currently 0 (1 standard drink = 0.6 oz pur e alcohol) PHQ-2 Answer Date Recorded PHQ-2 TOTAL SCORE 0 08/13/2023 Social Connections Answer Date Recorded Frequency of Communication with Friends and Fami ly 0 08/13/2023 Financial Resource Strain Answer Date R ecorded Difficulty of Paying Living Expenses 3 08/13/2023 Difficulty of Paying Living Expenses Not on file 08/13/2023 Food Insecurity Answer Date Recorded Worried About Running Out of Food in the Last Ye ar 1 08/13/2023 Transportation Needs Answer Date Record ed Lack of Transportation (Medical) 1 08/13/2023 Housing Stability Answer Date Recorded Unable to Pay for Housing in the Last Year 1 08/13/2023 Sex and Gender Information Value Date Recorded Sex Assigned at Male 04/15/2021 1:23 AM RESEARCH AND EVALUATION ANALYST Gender Identity Male 04/15/2021 1:23 AM RESEARCH AND EVALUATION ANALYST Sexual Orientation Straight 04/15/2021 1: 23 AM RESEARCH AND EVALUATION ANALYST Obstetrics History Last Filed Vital Signs Vital Sign Reading Time Taken Comments Blood Pressure 138/84 08/13/2023 3:06 PM CDT Pulse 64 08/13/2023 3:06 PM CDT Temperature 36.7 ??C (98.1 ??F) 02/13/2020 1 0:46 AM CDT Respiratory Rate 16 03/14/2012 4:45 AM RESEARCH AND EVALUATION ANALYST Oxygen Saturation 99% 08/13/2023 3:06 PM CDT Inhaled Oxygen Concentration - - Weight 89.4 kg (197 lb 3.2 oz) 08/13/2023 3:06 P M CDT Height 182.9 cm (6') 11/12/2020 3:17 PM CDT with shoe Body Mass Index 26.75 11/12/2020 3:17 PM CDT Plan of Treatment Upcoming Encounters Date Type Department Care Team (Late st Contact Info) Description 08/24/2023 9:00 AM CDT Ancillary Procedure [facility] [address] [place] [address] 09/10/2023 9:00 AM CDT [place] [facility] [address] [place] [address] Jatinder Calvo MD [address] [place] [address] 09/10/2023 3:40 PM CDT Office Visit [facility] [address] [place] [address] Lorri Kennedy MD [address] [place] [address] Health Maintenance Due Date Last Done Comments HIV for age 15-65 12/31/2002 Hepatitis C screening for age 18-79 12/31/2005 BMI (ht and wt on same day) for age 18+ 11/12/2021 11/12/2020, 02/09/2020, 02/02/2019, Additional history exists COVID-19 vaccine series (2022- season) 2023 Tetanus booster 03/07/2023 03/07/2013, 12/26/2002 Influenza for age 9-49 01/02/2024 9, 02/09/2018, 05/14/2009, Additional history exists Depression screening for age 12+ 08/12/2024 08/13/2023, 11/12/2020, 02/15/2019, Additional history exists Lipids for age 35-44 08/12/2028 08/13/2023 Tdap Completed 03/07/2013 Pneumococcal series for age 6-64 Aged Out No longer eligible based on patient's age to complete this topic Medical Devices Implanted Type Area Transportation Aide Device Identifier Shelf Expiration Date Model / Serial / Lot Screw Canclls 4.0x45mm Part Thread 207.045 [employer] [id number] Implanted:Qty: 1 on 2010 at [facility] Ortho Imp.,Screw s & Plates Right: Knee [email or web address] 207.045# / / Screw Cortex 4.5x60mm Self Tapping 214.860 [employer] - [id number] Implanted:Qty: 1 on 2010 at [facility] Right: [email or web address] [email or web address] 214.860# / / Procedures Procedure Name Priority Date/Time Associated Diagnosis Comments LIPID PANEL W REFLEX MEASURED LDL Routine 08/13/2023 4:00 PM CDT Tetralogy of Fallot Palpitations HEMOGLOBIN Routine 08/13/2023 4:00 PM CDT Palpitations BASIC METABOLIC PANEL Routine 08/13/2023 4:00 PM CDT Palpitations TSH WITH REFLEX Routine 08/13/2023 4:00 PM CDT Palpitations SCAN-ELECTROCARDIOGR AM EKG 08/08/2023 12:00 AM CDT SCAN-LABORATORY REPORT 08/08/2023 12:00 AM CDT SCAN-RADIOLOGY REPORT 08/08/2023 12:00 AM CDT from Last 3 Months Results * TSH WITH REFLEX (08/13/2023 4:00 PM CDT) TSH 2.34 0.27 - 4.20 uIU/mL 08/13/2023 9:52 PM CDT [facility] Blood BLOOD SPECIMEN / Unknown Venipuncture / Unknown 08/13/2023 4:00 PM CDT 08/13/2023 4:00 PM CDT Narrative [facility] - 08/13/2023 9:52 PM CDT In Adults, TSH values between 5.00 and 10.00 uIU/ml do not necessarily indicate the presence of Hypothyroidism. Correlation with clinical findings such as presence of goiter and/or Thyroperoxidase (TPO) Antibody may be helpful. For more information please refer to FAN 2004; 291: 228-238. Lorri Kennedy MD CHEMISTRY [facility] [address] [place] [address], * LIPID PANEL W REFLEX MEASURED LDL (08/13/2023 4:00 PM CDT) CHOLESTEROL,TOTAL 189 100 - 199 mg/dL 08/13/2023 9:52 PM CDT [facility] Comment: Cholesterol, Total Reference Ranges Desirable <200 mg/dL Borderline 200-239 mg/dL High >=240 mg/dL TRIGLYCERIDES 108 <150 mg/dL 08/13/2023 9:52 PM CDT [facility] HDL CHOLESTEROL 45 >40 mg/dL 9:52 PM CDT [facility] NON-HDL CHOLESTEROL 144 <145 mg/dl 08/13/2023 9:52 PM CDT [facility] CHOL/HDL RATIO 4.20 <4.50 08/13/2023 9:52 PM CDT [facility] LDL CHOLESTEROL 122 <=130 mg/dL 08/13/2023 9:52 PM CDT [facility] VLDL CHOLESTEROL 22 <=30 mg/dL 08/13/2023 9:52 PM CDT [facility] PROVIDER ORDERED STATUS RANDOM 08/13/2023 9:52 PM CDT [facility] Blood BLOOD SPECIMEN / Unknown Venipuncture / Unknown 08/13/2023 4:00 PM CDT 08/13/2023 4:00 PM CDT Lorri Kennedy MD CHEMISTRY [facility] [address] [place] [id number], * HEMOGLOBIN (08/13/2023 4:00 PM CDT) Pathologist [facility] HEMOGLOBIN 14.7 13.5 - 17.5 g/dL 08/13/2023 4:04 PM CDT [facility] MCV 88 80 - 100 fL 08/13/2023 4:04 PM CDT [facility] Blood BLOOD SPECIMEN / Unknown Venipuncture / Unknown 08/13/2023 4:00 PM CDT 08/13/2023 4:00 PM CDT Lorri Kennedy MD HEMATOLOGY [facility] [address] [place] [address], [place] [phone] * (ABNORMAL) BASIC METABOLIC PANEL (08/13/2023 4:00 PM CDT) SODIUM 139 136 - 145 mmol/L 08/13/2023 9:52 PM CDT [facility] POTASSIUM 4.0 3.5 - 5.1 mmol/L 08/13/2023 9:52 PM CDT [facility] CHLORIDE 101 98 - 107 mmol/L 08/13/2023 9:52 PM CDT [facility] CO2,TOTAL 29 22 - 29 mmol/L 08/13/2023 9:52 PM CDT [facility] ANION GAP 9 5 - 18 08/13/2023 9:52 PM CDT [facility] GLUCOSE 100(H) 70 - 99 mg/dL 08/13/2023 9:52 PM CDT [facility] CALCIUM 9.5 8.6 - 10.0 mg/dL 08/13/2023 9:52 PM CDT [facility] BUN 10 6 - 20 mg/dL 08/13/2023 9:52 PM CDT [facility] CREATININE 0.90 0.70 - 1.20 mg/dL 08/13/2023 9:52 PM T [facility] BUN/CREAT RATIO 11 10 - 20 9:52 PM CDT [facility] eGFR >90 >90 mL/min/1.7 3m2 08/13/2023 9:52 PM T [facility] Comment:As of 2021, eG FR is calculated by the CKD-EPI creatinine equation without race adjustment. ??eGFR can be influenced by muscle mass, exercise, and diet. ??The reported eGFR is an estimation only and is only applicable if the renal function is stable. Blood BLOOD SPECIMEN / Unknown Venipuncture / Unknown 08/13/2023 4:00 PM CDT 08/13/2023 4:00 PM CDT Lorri Kennedy MD CHEMISTRY [facility] [address] [place] [address], * SCAN-RADIOLOGY REPORT (08/08/2023 12:00 AM CDT) Anatomical Region Laterality Modality Other Scanner OTHER * SCAN-LABORATORY REPORT (08/08/2023 12:00 AM CDT) Scanner OTHER * SCAN-ELECTROCARDIOGRAM EKG (08/08/2023 12:00 AM CDT) Scanner OTHER from Last 3 Months Advance Directives * Full Code (Latest Code [...] 10:01 AM 11/16/2005 3:05 PM Care Teams Engineer [employer] Relationship Specialty Start Date End Date [place] [place] [address] [address] PCP - General Family Practice 08/11/23
[2023-08-23 21:16] LABS: Albumin* 4.6 g/dL (3.3-5.0); Chloride* 106 mmol/L (96-114); Sodium* 140 mmol/L (135-149)
[2023-08-23 21:17] LABS: Potassium* 3.6 mmol/L (3.6-5.1)
[2023-08-23 21:19] LABS: Alanine Aminotransferase* 14 U/L (4-50); Alkaline Phosphatase* 65 U/L (40-150); Anion Gap 5 mEq/L (7-15); Aspartate Amino Transferase* 22 U/L (12-35); Blood Urea Nitrogen* 15 mg/dL (5-24); Carbon Dioxide* 29 mmol/L (20-32); Creatinine* 0.9 mg/dL (0.5-1.5); Est. Creatinine Clearance* 122.01; Estimated Glomerular Filt Rate 114 ml/min; Glucose* 122 mg/dL (60-115); Total Protein* 7.8 g/dL (6.0-8.3)
[2023-08-23 21:20] LABS: Calcium* 9.1 mg/dL (8.4-10.6)
[2023-08-23 22:02] LABS: Troponin I* < 0.01 ng/mL (0.01-0.04)
[2023-08-23 23:15] LABS: Troponin I* < 0.01 ng/mL (0.01-0.04)
== END 2023-08-23 23:58 | disposition home or self-care (01) ==
PROVIDERS: Emergency Provider Emergency Medicine; PCP Family Medicine
DX: R07.9 Chest pain, unspecified (principal)
CPT/HCPCS: 36415; 80053; 84484; 85025; 93005; 99284; 99285; A9270

== ENCOUNTER 2023-10-06 14:53 | Emergency (ER) | payer BC, SELFPAY ==
[2023-10-06 14:59] VITALS: BP 160/91; PULSE 78; RESP 18; TEMP 37; O2SAT 98; BMI 26.5
[2023-10-06 15:08] VITALS: PULSE 83; O2SAT 99
[2023-10-06 15:14] VITALS: O2SAT 98
--- NOTE | 2023-10-06 15:14 | CRLHL7_ITS ---
For Patients: As a result of the Century Cures Act, medical imaging exams and procedure reports are released immediately into your electronic medical record. You may view this report before your referring provider. If you have questions, please contact your health care provider. INDICATION: Near syncope TECHNIQUE: Noncontrast axial CT of the head. Coronal and sagittal reformats. Bone and soft tissue algorithms. COMPARISON: No relevant comparison studies available at this institution. FINDINGS: The ventricles and cortical sulci appear age-appropriate. No midline shift or mass effect. No acute intracranial hemorrhage or extra-axial fluid collection. Arredondo-white matter differentiation is grossly maintained. White matter attenuation is within normal limits. Intracranial vessels are unremarkable for technique. Midline structures are unremarkable. Bony calvarium appears grossly intact. Right maxillary sinus mucous retention cyst/polyp. Leftward projecting nasal septal spur deforming the left inferior turbinate. Clear mastoid air cells. Unremarkable orbits. IMPRESSION: No CT evidence of acute intracranial abnormality. Please note that all CT scans at this facility use dose modulation, iterative reconstruction, and/or weight-based dosing when appropriate to reduce radiation dose to as low as reasonably achievable. Dictated by Taylor Severino MD @ 10/06/2023 4:16:39 PM (Electronically Signed)
--- NOTE | 2023-10-06 15:16 | ED.GENADULT ---
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 He was helped to the chair by his brother and ambulance was called. He feels dry, but he has no chest pain, no neurologic complaints. He has had a similar episode about a month ago any did feel little stressed at that time but he did not feel stressed today he is concerned about this. He has had no swelling or edema no bleeding or clotting problems, no fever. <Franklin Curry MD - Last Filed: 10/09/23 11:14> Related Data Home medications: Home Medications ?Medication ?Instructions ?Recorded ?Confirmed buprenorphine 2 mg-naloxone 0.5 mg film sublingual 08/08/23 sublingual film citalopram 20 mg tablet 20 mg PO DAILY 10/06/23 10/06/23 losartan 50 mg tablet 50 mg PO DAILY 10/06/23 10/06/23 <Franklin Curry MD - Last Filed: 10/09/23 11:14> Allergies/adverse reactions: Allergies Allergy/AdvReac Type Severity Reaction Status Date / Time amoxicillin [From Augmentin] Allergy Unknown Verified 08/08/23 12:27 clavulanic acid Allergy Unknown Verified 08/08/23 12:27 [From Augmentin] shellfish derived Allergy Unknown Verified 08/08/23 12:27 <Franklin Curry MD - Last Filed: 10/09/23 11:14> Review of Systems Status of ROS: Reports: 6 or more systems reviewed and unremarkable except as noted in History and below <Franklin Curry MD - Last Filed: 10/09/23 11:14> PFSH PFSH Social History: Social History Smoking Status: Never smoker Do you use any of these nicotine containing products: Vaping Products Second hand tobacco smoke exposure: No How often do you have a drink containing alcohol: never How often do you have six or more drinks on one occasion: Never AUDIT-C Alcohol total score: 0 Non-prescribed substance use: denies use service: No <Franklin Curry MD - Last Filed: 10/09/23 11:14> Exam Narrative: Exam Narrative: Objective: Vital signs are unremarkable and within normal limits Alert orient x3 pleasant man HEENT is unremarkable mouth somewhat dry feels his mouth is dry Neck is supple Chest clear Heart rhythm regular with 2/6 systolic murmur consistent with his prior surgery Abdomen benign soft Extremities are no edema Neurologic nonfocal No peripheral edema or palpable venous cords in the legs noted. <Franklin Curry MD - Last Filed: 10/09/23 11:14> Const: Vital Signs, click to edit/add: Vital Signs - 24 hr 10/06/23 14:59 10/06/23 15:08 10/06/23 15:14 Temperature 98.6 F Pulse Rate 83 Pulse Rate [Pulse Oximeter] 78 Respiratory Rate 18 Blood Pressure [Ri ght Upper Arm] 160/91 H Pulse Oximetry 98 99 98 Oxygen Delivery Me thod Room Air <Franklin Curry MD - Last Filed: 10/09/23 11:14> Vital Signs, click to edit/add: Vital Signs - 24 hr 10/06/23 14:59 10/06/23 15:08 10/06/23 15:14 Temperature 98.6 F Pulse Rate 83 Pulse Rate [Pulse Oximeter] 78 Respiratory Rate 18 Blood Pressure [Ri ght Upper Arm] 160/91 H Pulse Oximetry 98 99 98 Oxygen Delivery Me thod Room Air <Kd Flowers MD - Last Filed: 10/06/23 17:50> Course Course ED Course: Patient signed out to Dr. 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 No other long-term heart disease. He had an episode of dizziness today while working at his job. 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 He was evaluated by Dr. Horn. Initial EKG showed sinus rhythm with no ischemia. Dr. Horn feels that the symptoms are probably being driven by dehydration and dizziness. However has ordered a cardiac workup with troponin, labs, D-dimer and head CT just to make sure there is no other life threat going on. As also ordered Ativan Dr. Horn has entered at discharge plan anticipating that the workup will likely reveal no life threat and me normal. In that case patient discharge home and follow-up with his doctor. Since it has been about 10 years since his last cardiac workup, would be reasonable for him to follow-up with his flame cutting supervisor for recheck as well, on the outpatient basis. If laboratory workup or workup is abnormal, I will disposition accordingly. ER course: Labs came back. WBC 5.7, hemoglobin 13.6, platelet count 158. White count differential normal. CRP< 0.5 Sodium 140, potassium 3.5L, chloride 104, bicarb 29, BUN 18, creatinine 0.8, glucose 117 Bilirubin 1.0, AST 21, ALT 15 Point of care troponin 0.[address] head IMPRESSION: No CT evidence of acute intracranial abnormality. I reviewed the patient's EKG Normal sinus rhythm Rate: 61 VT: 168 QRS axis: Normal axis. Incomplete right bundle-branch block ST segment/T wave: No ST segment elevation or depression. Nonspecific T-wave flattening/inversion in V1 and V2 QTc: 426 Recheck-17 20. Patient feeling better after fluids and Ativan. He recalls that he has already been seeing his flame cutting supervisor at the [facility]. He recently had an echo that showed minimal leaking from 1 of his valves but no concern. He scheduled to have a cardiac MRI next week just for completeness but his flame cutting supervisor overall has no concerns about his tetralogy repair. Discussed that so far workup is reassuring. He agrees to let us check a 2 hour delta troponin. Medical decision making This patient presents to the ER today for evaluation of dizziness that occurred while he was at work.. Differential was broad. No evidence of palpitations, syncope or other cardiac dysrhythmia. We considered possible ACS, however workup with EKG and 2 hour delta troponin is negative. HEART score is 1. Given time since onset of symptoms, I do not think the patient needs to be admitted for further sets of enzymes. Nonetheless with his history of tetralogy, he needs cardiology follow-up and is actually scheduled to have an MRI next week. He will keep that appointment. EKG shows no evidence for pericarditis. Clinical presentation not suggestive of myocarditis. Mediastinum is normal on the x-ray. The patient has no ripping or tearing pain through to the back and has symmetric pulses on exam, no other acute neuro findings so I doubt aortic dissection. Risk of radiation and contrast exposure would outweigh the benefit of CT angiogram. We considered PE for this patient. D-dimer is normal. N terminal proBNP is normal. No wheezing or bronchospasm to suggest COPD/asthma. Patient suspects that he probably got dehydrated from the hot weather in the warehouse where he was working which then led him to feel dizzy which then triggered a panic attack. He is feeling better after fluids and Ativan. With reasonable clinical confidence, I think the patient is safe for outpatient follow up. Discussed return precautions. Questions answered. Patient voices comfort with the plan. <Kd Flowers MD - Last Filed: 10/06/23 17:50> Vital Signs Vital signs: Initial Vital Signs Temperature 98.6 F 10/06/23 14:59 Temperature Source Temporal Artery Scan 10/06/23 14:59 Pulse Rate 78 10/06/23 14:59 Respiratory Rate 18 10/06/23 14:59 Blood Pressure 160/91 H 10/06/23 14:59 Blood Pressure Mean 114 H 10/06/23 14:59 Pulse Oximetry 98 10/06/23 14:59 Oxygen Delivery Method Room Air 10/06/23 14:59 Vital Signs Temperature 98.6 F 10/06/23 14:59 Pulse Rate 78 10/06/23 14:59 Respiratory Rate 18 10/06/23 14:59 Blood Pressure 160/91 H 10/06/23 14:59 Pulse Oximetry 98 10/06/23 14:59 Oxygen Delivery Method Room Air 10/06/23 14:59 Temperature 98.6 F 10/06/23 14:59 Pulse Rate 83 10/06/23 15:08 Respiratory Rate 18 10/06/23 14:59 Blood Pressure 160/91 H 10/06/23 14:59 Pulse Oximetry 98 10/06/23 15:14 Oxygen Delivery Method Room Air 10/06/23 14:59 <Franklin Curry MD - Last Filed: 10/09/23 11:14> Initial Vital Signs Temperature 98.6 F 10/06/23 14:59 Temperature Source Temporal Artery Scan 10/06/23 14:59 Pulse Rate 78 10/06/23 14:59 Respiratory Rate 18 10/06/23 14:59 Blood Pressure 160/91 H 10/06/23 14:59 Blood Pressure Mean 114 H 10/06/23 14:59 Pulse Oximetry 98 10/06/23 14:59 Oxygen Delivery Method Room Air 10/06/23 14:59 Vital Signs Temperature 98.6 F 10/06/23 14:59 Pulse Rate 78 10/06/23 14:59 Respiratory Rate 18 10/06/23 14:59 Blood Pressure 160/91 H 10/06/23 14:59 Pulse Oximetry 98 10/06/23 14:59 Oxygen Delivery Method Room Air 10/06/23 14:59 Temperature 98.6 F 10/06/23 14:59 Pulse Rate 83 10/06/23 15:08 Respiratory Rate 18 10/06/23 14:59 Blood Pressure 160/91 H 10/06/23 14:59 Pulse Oximetry 98 10/06/23 15:14 Oxygen Delivery Method Room Air 10/06/23 14:59 <Kd Flowers MD - Last Filed: 10/06/23 17:50> Medications Administered Medications: Discontinued Medications Generic Name Dose Route Start Last Admin Trade Name Freq PRN Reason Stop Dose Admin Sodium Chloride 1,000 mls @ 6,000 mls/hr 10/06/23 15:15 10/06/23 16:32 0.9 % Sodium Chloride 1000 Ml IV 10/06/23 15:24 6,000 mls/hr .Q10M ENRIQUE Administration Lorazepam 1 mg 10/06/23 15:55 10/06/23 16:33 Lorazepam 2 Mg/Ml Inj IVP 10/06/23 15:56 1 mg ONCE ONE Administration <Franklin Curry MD - Last Filed: 10/09/23 11:14> Discontinued Medications Generic Name Dose Route Start Last Admin Trade Name Freq PRN Reason Stop Dose Admin Sodium Chloride 1,000 mls @ 6,000 mls/hr 10/06/23 15:15 10/06/23 16:32 0.9 % Sodium Chloride 1000 Ml IV 10/06/23 15:24 6,000 mls/hr .Q10M ENRIQUE Administration Lorazepam 1 mg 10/06/23 15:55 10/06/23 16:33 Lorazepam 2 Mg/Ml Inj IVP 10/06/23 15:56 1 mg ONCE ONE Administration <Kd Flowers MD - Last Filed: 10/06/23 17:50> Medical Decision Making MDM Narrative Medical decision making narrative: 33-year-old white male with a past history of tetralogy repair Fallot repair, with a near syncopal episode, he had an episode about a month ago. He does feel dry like dehydration. 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 Does not report the stress or anxiety with this episode today. I think could be deng to check given it is a recurrent episode a couple of additional studies. 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 Disposition pending findings above hopefully this is just dehydration episode. Will review labs as they return. Addendum 4:05 p.m.: The patient has had some symptoms of a anxiety attack with burning in the face some weird feeling in his body he has some mild tremulousness. His reports that he has pretty significant anxiety. He will get 1 mg IV Ativan. His EKG shows normal sinus rhythm no obvious ischemic changes, incomplete right bundle branch block. Rate controlled at 61 a minute. He has lab studies that show normal CBC a negative D-dimer, negative CRP, point of care troponin is pending. Head CT scan is pending. The patient was given 1 mg IV Ativan as mention 1 L of saline. Will long to drink fluids. If his lab studies CT all returned normal, I think he can be discharged home and follow up with regular doctor to discuss anxiety issues. I think the dose of Ativan will help him break this anxiety spell. And I think our workup will rule out rule out other significant abnormalities. He will need follow-up for his symptoms however. He probably also should re-consult cardiology regarding his prior tetralogy at some point. <Franklin Curry MD - Last Filed: 10/09/23 11:14> Lab Data Labs: Lab Results 10/06/23 10/06/23 10/06/23 Range/Units 15:15 15:25 17:21 WBC 5.74 (4.50-11.00) K/uL RBC 4.59 (4.30-5.90) m/uL Hgb 13.6 (13.5-17.5) gm/dL Hct 41.4 (37.0-53.0) % MCV 90 (80-100) fL MCH 30 (26-34) pg MCHC 33 (32-36) gm/dL RDW Coeff of Jim 12.4 (11.5-15.5) % Plt Count 158 (140-440) K/uL Neut % (Auto) 63.6 (42.0-72.0) % Lymph % (Auto) 28.9 (20-44) % [place] % (Auto) 5.6 (0.0-11.0) % Eos % (Auto) 1.2 (0.0-7.0) % Baso % (Auto) 0.7 (0.0-3.0) % Neut # (Auto) 3.65 (1.7-7.0) K/uL Lymph # (Auto) 1.66 (0.90-2.90) K/uL [place] # (Auto) 0.30 (0.00-0.90) K/UL Eos # (Auto) 0.07 (0.00-0.50) K/uL Baso # (Auto) 0.04 (0.00-0.30) K/uL Abs Immat Gran (auto) 0.00 (0.00-0.30) K/uL Imm/Tot Granulo (auto) 0.0 % D-Dimer Quant (PE/DVT) 0.20 (0.00-0.50) ug/ml Sodium 140 (135-149) mmol/L Potassium 3.5 L (3.6-5.1) mmol/L Chloride 104 (96-114) mmol/L Carbon Dioxide 29 (20-32) mmol/L Anion Gap 7 (7-15) mEq/L BUN 18 (5-24) mg/dL Creatinine 0.8 (0.5-1.5) mg/dL Estimated Creat Clear 137.27 Estimated GFR 118 ml/min Glucose 117 H (60-115) mg/dL Calcium 8.8 (8.4-10.6) mg/dL Total Bilirubin 1.0 (0.1-1.5) mg/dL Direct Bilirubin 0.4 (0.0-0.5) mg/dL AST 21 (12-35) U/L ALT 15 (4-50) U/L Alkaline Phosphatase 62 (40-150) U/L C-Reactive Protein < 0.5 L (0.5-1.0) mg/dL NT-Pro-B Natriuret Pep 72 pg/mL Total Protein 7.3 (6.0-8.3) g/dL Albumin 4.6 (3.3-5.0) g/dL POC Troponin I 0.01 0.01 (0.01-0.04) ng/ml <Franklin Curry MD - Last Filed: 10/09/23 11:14> Lab Results 10/06/23 10/06/23 10/06/23 Range/Units 15:15 15:25 17:21 WBC 5.74 (4.50-11.00) K/uL RBC 4.59 (4.30-5.90) m/uL Hgb 13.6 (13.5-17.5) gm/dL Hct 41.4 (37.0-53.0) % MCV 90 (80-100) fL MCH 30 (26-34) pg MCHC 33 (32-36) gm/dL RDW Coeff of Jim 12.4 (11.5-15.5) % Plt Count 158 (140-440) K/uL Neut % (Auto) 63.6 (42.0-72.0) % Lymph % (Auto) 28.9 (20-44) % [place] % (Auto) 5.6 (0.0-11.0) % Eos % (Auto) 1.2 (0.0-7.0) % Baso % (Auto) 0.7 (0.0-3.0) % Neut # (Auto) 3.65 (1.7-7.0) K/uL Lymph # (Auto) 1.66 (0.90-2.90) K/uL [place] # (Auto) 0.30 (0.00-0.90) K/UL Eos # (Auto) 0.07 (0.00-0.50) K/uL Baso # (Auto) 0.04 (0.00-0.30) K/uL Abs Immat Gran (auto) 0.00 (0.00-0.30) K/uL Imm/Tot Granulo (auto) 0.0 % D-Dimer Quant (PE/DVT) 0.20 (0.00-0.50) ug/ml Sodium 140 (135-149) mmol/L Potassium 3.5 L (3.6-5.1) mmol/L Chloride 104 (96-114) mmol/L Carbon Dioxide 29 (20-32) mmol/L Anion Gap 7 (7-15) mEq/L BUN 18 (5-24) mg/dL Creatinine 0.8 (0.5-1.5) mg/dL Estimated Creat Clear 137.27 Estimated GFR 118 ml/min Glucose 117 H (60-115) mg/dL Calcium 8.8 (8.4-10.6) mg/dL Total Bilirubin 1.0 (0.1-1.5) mg/dL Direct Bilirubin 0.4 (0.0-0.5) mg/dL AST 21 (12-35) U/L ALT 15 (4-50) U/L Alkaline Phosphatase 62 (40-150) U/L C-Reactive Protein < 0.5 L (0.5-1.0) mg/dL NT-Pro-B Natriuret Pep 72 pg/mL Total Protein 7.3 (6.0-8.3) g/dL Albumin 4.6 (3.3-5.0) g/dL POC Troponin I 0.01 0.01 (0.01-0.04) ng/ml <Kd Flowers MD - Last Filed: 10/06/23 17:50> Discharge Plan Discharge Clinical Impression: Near syncope, Anxiety <Franklin Curry MD - Last Filed: 10/09/23 11:14> Patient Disposition: Home w/ Parent or Adult <Franklin Curry MD - Last Filed: 10/09/23 11:14> Condition: Improved <Franklin Curry MD - Last Filed: 10/09/23 11:14> Additional Instructions: Light activity for a couple of days, recheck with your regular doctor next 3-5 days to reassess your situation, discuss potential anxiety issues. Drink lots of fluids and stay hydrated on a regular basis as dehydration can play a component in near syncope. Return to the ED if problems or concerns or any issues. <Franklin Curry MD - Last Filed: 10/09/23 11:14> Activity Level: Light activity <Franklin Curry MD - Last Filed: 10/09/23 11:14> Light activity <Kd Flowers MD - Last Filed: 10/06/23 17:50> Discharge Diet: Regular <Franklin Curry MD - Last Filed: 10/09/23 11:14> Regular <Kd Flowers MD - Last Filed: 10/06/23 17:50> Prescriptions: No Action buprenorphine-naloxone 2-0.5 mg film sublingual losartan 50 mg tablet 50 mg PO DAILY citalopram 20 mg tablet 20 mg PO DAILY <Franklin Curry MD - Last Filed: 10/09/23 11:14> Follow Up/Referrals: Lorri Kennedy MD [Primary Care Provider] - <Franklin Curry MD - Last Filed: 10/09/23 11:14> Stand Alone Forms: ICEdotth Info Instructions <Franklin Curry MD - Last Filed: 10/09/23 11:14>
--- OUTSIDE RECORDS SUMMARY | 2023-10-06 15:24 | XMS_ITS | Clinical Summary ---
Author Organization [facility] Address [address], [place] [address] Care Team Providers Care Vpk Teacher Name Role Phone Hayden Grey PA-C Primary Care Provider [phone] Source Comments You are receiving this document as you are listed as the primary care provider,follow-up provider, or the patient has been referred to you for consultation.This is in compliance with the Medicare and[facility] Cent[facility]aid EHR Incentive Program,which states Providers who transition their patient to another setting of careor provider of care or refers their patient to another provider of care shouldprovide summary care record for each transition of care or referral. [facility] Allergies Active Allergy Reactions Criticality Noted Date [...] 93.9 kg (207 lb) 06/28/2017 7:57 AM LINUX ADMIN ENGINEER Height 180.3 cm (5' 11) 06/28/2017 7:57 AM LINUX ADMIN ENGINEER Body Mass Index 28.87 06/28/2017 7:57 AM LINUX ADMIN ENGINEER Plan of Treatment Health Maintenance Due Date Last Done Comments Hep C Screening (Preventive Services) 1988 HIV Screening (Preventive Services) 2004 Adult Preventive Visit 12/31/2005 Cholesterol 12/31/2022 COVID-19 Vaccine ( season) 2023 DTaP/Tdap/Td (7 - Tdap) 03/07/2023 03/07/20 13, 12/26/2002, 12/07/1992, Additional history exists Influenza (Season Ended) 2024 019, 02/09/2018, 05/14/2009, Additional history exists Zoster/Shingles (1 of 2) [...] age to complete this topic Care Teams Vpk Teacher Relationship Specialty Start Date End Date Hayden Grey PA-C [address] [place] [address] PCP - General Physician Astronaut Mission Specialist 10/15/14
--- OUTSIDE RECORDS SUMMARY | 2023-10-06 15:24 | XMS_ITS | Encounter Summary ---
Author Organization [facility] Address [address] [place] [id number] Care Team Providers Care Market Director Name Role Phone No Ref-Primary, Physician Primary Care Provider No Ref-Primary, Physician Primary Care Provider Encounter Details Date Type Department Care Team (Late st Contact Info) Description 11/26/2011 Orders Only [facility] [address] [place] [address] [phone] Kelly Priest Recurrent dislocation of knee (Primary [...] joint documented in this encounter Care Teams Market Director Relationship Specialty Start Date End Date No Ref-Primary, Physician PCP - General 06/19/17 02/21/19 No Ref-Primary, Physician PCP - General 02/22/19 documented as of this encounter
--- OUTSIDE RECORDS SUMMARY | 2023-10-06 15:24 | XMS_ITS | Referral Summary ---
Author Organization [facility] Address [address] [place] [address]. [place] [address] Care Team Providers Care Poultry Process Worker Name Role Phone No Ref-Primary, Physician Primary [...] Comments Blood Pressure 133/82 06/19/2017 3:45 PM DIRECTOR CLIENT Pulse 70 06/19/2017 3:45 PM DIRECTOR CLIENT Temperature 36.8 ??C (98.3 ??F) 06/19/2017 3:45 PM CS T Respiratory Rate - - Oxygen Saturation 100% 06/19/2017 3:45 PM DIRECTOR CLIENT Inhaled Oxygen Concentration - - Weight - - Height - - Body Mass Index - - Plan of Treatment Not on file Care Teams Poultry Process Worker Relationship Specialty Start Date End Date No Ref-Primary, Physician PCP - General 02/22/19
--- OUTSIDE RECORDS SUMMARY | 2023-10-06 15:24 | XMS_ITS | Clinical Summary ---
Author Organization [facility] Address [address] [place] [address]. [place] [address] Care Team Providers Care Hydro Operator Name Role Phone No Ref-Primary, Physician Primary [...] Comments Blood Pressure 133/82 06/19/2017 3:45 PM DINING ROOM SUPERVISOR Pulse 70 06/19/2017 3:45 PM DINING ROOM SUPERVISOR Temperature 36.8 ??C (98.3 ??F) 06/19/2017 3:45 PM CS T Respiratory Rate - - Oxygen Saturation 100% 06/19/2017 3:45 PM DINING ROOM SUPERVISOR Inhaled Oxygen Concentration - - Weight - - Height - - Body Mass Index - - Plan of Treatment Not on file Care Teams Hydro Operator Relationship Specialty Start Date End Date No Ref-Primary, Physician PCP - General 02/22/19
--- OUTSIDE RECORDS SUMMARY | 2023-10-06 15:24 | XMS_ITS | Encounter Summary ---
Author Organization [facility] Address [address], [place] [address] Care Team Providers Care Home Performance Laborer Name Role Phone Hayden Grey PA-C Primary Care Provider [phone] Encounter Details Date Type Department Care Team [...] on filedocumented in this encounter Care Teams Home Performance Laborer Relationship Specialty Start Date End Date Hayden Grey PA-C [address] [place] [address] PCP - General Physician Treasury Agent 10/15/14 documented as of this encounter
--- OUTSIDE RECORDS SUMMARY | 2023-10-06 15:25 | XMS_ITS | Clinical Summary ---
Author Organization [facility] Address [place], [place] [address] Care Team Providers Care Ramp Manager Name Role Phone Padmini Kennedy MD Primary Care Provider Allergies Active Allergy Reactions Criticality Noted Date Comments Amoxicillin-Pot Clavulanate Hives 08/04/19 06 per H&P Penicillins Hives High 10/15/2014 Shellfish Containing Products Edema 2005 angioedema per H&P Medications Medication Sig Dispensed Refills Start Date End Date Status buprenorphine-nalo xone (SUBOXONE) 2-0.[address] 1 Film under the tongue once daily. 07/22/2023 Active losartan (COZAAR) 50 mg tabletIndications: Hypertension, unspecified type Take 1 Tablet (50 mg) by mouth once daily. 90 Tablet 3 08/26/2023 Active citalopram (CELEXA) 20 mg tabletIndications: Anxiety Take 1 Tablet (20 mg) by mouth once daily. Start with 1/2 tablet (10 mg) x 1 week, then increase to full tablet (20 mg) daily. 90 Tablet 3 09/10/2023 Active hydrOXYzine HCL (ATARAX) 25 mg tabletIndications: Anxiety Take 0.5-1 Tablets (12.5-25 mg) by mouth every 6 hours if needed for Anxiety. 30 Tablet 09/10/2023 Active hydrOXYzine HCL (ATARAX) 25 mg tabletIndications: Anxiety Take 0.5-1 Tablets (12.5-25 mg) by mouth every 6 hours if needed for Anxiety. 30 Tablet 08/13/2023 09/10/2023 Discontinued (Reorder (E-cancel not sent)) citalopram (CELEXA) 20 mg tabletIndications: Anxiety Take 1 Tablet (20 mg) by mouth once daily. Start with 1/2 tablet (10 mg) x 1 week, then increase to full tablet (20 mg) daily. 30 Tablet 08/20/2023 09/10/2023 Discontinued (Reorder (E-cancel not sent)) Active Problems Problem Noted Date Diagnosed Date Encounters for administrative purpose 07/22/2021 Inattention 06/06/2021 Narcotic dependence 04/16/2021 Tetralogy of Fallot 02/02/2019 Overview: Surgically corrected at 1 year old Last MRI 2013 Next MRI and cartilage he follow-up recommended for 2023 Grief at loss of child 06/05/2018 Overview: Lost son Milind to [facility] on 05/27/2018 at 5 weeks of age. Anxiety 11/26/2017 Left knee pain 09/19/2012 Dislocation of right patella 09/12/2012 Pain medication agreement 09/12/2012 Overview: Controlled substance agreement for Percocet 5/325mg one tab every 4hrs on file and signed 09/12/2012. Designated pharmacy: [facility] Prescribing physician: Carine Cross MD and Tess Lentz PA-C Diagnosis: patellar dislocation S/P knee surgery 01/02/2010 Encounters Date Type Department Care Team Description 09/10/2023 3:40 PM CDT Office Visit [facility] [[email or web address] [address] [place] [address] Padmini Kennedy MD Medication Management (1 month follow up) 09/10/2023 3:15 PM CDT Orders Only [facility] [[email or web address]] [address] [place] [address] Lab, [place] [facility] 09/10/2023 Travel 08/26/2023 8:30 AM CDT Office Visit [facility] [address] [facility] [address] [place] [address] Jatinder Calvo MD CV Congenital Heart Disease Est ([facility] IN PERSON VISIT. EKG NEEDED//PCP: Padmini Kennedy MD) 08/25/2023 Travel 08/24/2023 9:00 AM CDT Ancillary Procedure [facility] [address] [place] [address] 08/24/2023 Travel 08/16/2023 8:00 AM CDT Office Visit [address] [place] [address] 08/13/2023 2:50 PM CDT Office Visit [facility] [[email or web address] [address] [place] [address] Padmini Kennedy MD ER Follow up ([facility] 08/08/2023) 08/13/2023 Travel 08/12/2023 Telephone [facility] [[email or web address] [address] [place] [address] Padmini Kennedy MD Appointment 08/11/2023 Telephone [facility] [[email or web address]] [address] [place] [address] Padmini Kennedy MD 08/08/2023 Orders Only [facility] Scanner 1 scan: (1-Ord) EKG, 08/08/2023 08/08/2023 Orders Only [facility] Scanner 1 scan: (1-Ord) [place], MULTIPLE LAB RESULT, 08/08/2023 08/08/2023 Orders Only [facility] Scanner 1 scan: (1-Ord) [facility], XR CHEST 1V PORTABLE, 08/08/2023 from Last [...] Former Chew Quit: 10/15/2018 Tobacco Cessation:Counseling Given: No Alcohol Use Standard Drinks/Week Comments Not Currently 0 (1 standard drink = 0.6 oz pur e alcohol) PHQ-2 Answer Date Recorded PHQ-2 TOTAL SCORE 0 09/10/2023 Social Connections Answer Date Recorded Frequency of [...] Sex Assigned at Male 04/15/2021 1:23 AM SMOCKER Gender Identity Male 04/15/2021 1:23 AM SMOCKER Sexual Orientation Straight 04/15/2021 1: 23 AM SMOCKER Obstetrics History Last Filed Vital Signs Vital Sign Reading Time Taken Comments Blood Pressure 112/69 09/10/2023 3:47 PM CDT Pulse 70 09/10/2023 3:47 PM CDT Temperature 36.7 ??C (98.1 ??F) 02/13/2020 10:46 AM C DT Respiratory Rate 16 03/14/2012 4:45 AM SMOCKER Oxygen Saturation 98% 09/10/2023 3:47 PM CDT Inhaled Oxygen Concentration - - Weight 87.2 kg (192 lb 3.2 oz) 09/10/2023 3:47 P M CDT Height 182.9 cm (6') 08/26/2023 8:24 AM CDT Body Mass Index 26.07 08/26/2023 8:24 AM CDT Plan of Treatment Upcoming Encounters Date Type Department Care Team (Late st Contact Info) Description 10/12/2023 2:30 PM CDT Appointment [facility] [address] [place] [address] Health Maintenance Due Date Last Done Comments HIV for age 15-65 12/31/2002 Hepatitis C screening for age 18-79 12/31/2005 COVID-19 vaccine series (2022- season) 2023 Tetanus booster 03/07/2023 03/07/2013, 12/26/2002 Influenza for age 9-49 01/02/2024 9, 02/09/2018, 05/14/2009, Additional history exists BMI (ht and wt on same day) for age 18+ 08/25/2024 08/26/2023, 11/12/2020, 02/09/2020, Additional history exists Depression screening for age 12+ 09/09/2024 09/10/2023, 09/10/2023, 08/13/2023, Additional history exists Lipids for age 35-44 08/12/2028 08/13/2023 Tdap Completed 03/07/2013 Pneumococcal series for age 6-64 Aged Out No longer eligible based on patient's age to complete this topic Medical Devices Implanted Type Area Athletic Director Device Identifier Shelf Expiration Date Model / Serial / Lot Screw Canclls 4.0x45mm Part Thread 207.045 Synthes - [id number] Implanted:Qty: 1 on 2010 at [facility] Ortho Imp.,Screw s & Plates Right: Knee Depuy [employer] 207.045# / / Screw Cortex 4.5x60mm Self Tapping 214.860 [employer] - [id number] Implanted:Qty: 1 on 2010 at [facility] Right: Knee Depuy [employer] 214.860# / / Procedures Procedure Name Priority Date/Time Associated Diagnosis Comments BASIC METABOLIC PANEL Routine 09/10/2023 4:23 PM CDT Hypertension, unspecified type EXTENDED HOLTER Routine 09/03/2023 12:00 AM CDT Tetralogy of Fallot Palpitations ECHO TTE COMPLETE WO CONTRAST STAT 08/24/2023 9:51 AM CDT Tetralogy of Fallot Palpitations LIPID PANEL W REFLEX MEASURED LDL Routine 08/13/2023 4:00 PM CDT Tetralogy of Fallot Palpitations HEMOGLOBIN Routine 08/13/2023 4:00 PM CDT Palpitations BASIC METABOLIC PANEL Routine 08/13/2023 4:00 PM CDT Palpitations TSH WITH REFLEX Routine 08/13/2023 4:00 PM CDT Palpitations SCAN-ELECTROCARDIOG BRANT EKG 08/08/2023 12:00 AM CDT SCAN-LABORATORY REPORT 08/08/2023 12:00 AM CDT SCAN-RADIOLOGY REPORT 08/08/2023 12:00 AM CDT from Last 3 Months Results * BASIC METABOLIC PANEL (09/10/2023 4:23 PM CDT) Only the most recent of2 resultswithin the time period is included. SODIUM 141 136 - 145 mmol/L 09/13/2023 2:20 PM CDT [facility] POTASSIUM 4.4 3.5 - 5.1 mmol/L 09/13/2023 2:20 PM CDT [facility] CHLORIDE 104 98 - 107 mmol/L 09/13/2023 2:20 PM CDT [facility] CO2,TOTAL 27 22 - 29 mmol/L 09/13/2023 2:20 PM CDT [facility] ANION GAP 10 5 - 18 09/13/2023 2:20 PM CDT [facility] GLUCOSE 91 70 - 99 mg/dL 09/13/2023 2:20 PM CDT [facility] CALCIUM 9.3 8.6 - 10.0 mg/dL 09/13/2023 2:20 PM CDT [facility] BUN 15 6 - 20 mg/dL 09/13/2023 2:20 PM CDT [facility] CREATININE 0.93 0.70 - 1.20 mg/dL 09/13/2023 2:20 PM CDT [facility] BUN/CREAT RATIO 16 10 - 20 2:20 PM CDT [facility] eGFR >90 >90 mL/min/1.7 3m2 09/13/2023 2:20 PM CDT [facility] Comment:As of 2021, eG FR is calculated by the CKD-EPI creatinine equation without race adjustment. ??eGFR can be influenced by muscle mass, exercise, and diet. ??The reported eGFR is an estimation only and is only applicable if the renal function is stable. Blood BLOOD SPECIMEN / Unknown Venipuncture / Unknown 09/10/2023 4:23 PM CDT 09/10/2023 4:23 PM CDT Jatinder Calvo MD CHEMISTRY [facility] [address] [address], * ZIO PATCH XT - weekly to monthly symptoms. (09/03/2023 12:00 AM CDT) Padmini Kennedy MD CARDIAC SERVICES OR D * ECHO TTE COMPLETE WO CONTRAST (08/24/2023 9:51 AM CDT) AORTIC VALVE MEAN PG 4 mmHg EJECTION FRACTION 58 % LVEDD 5.1 cm EJECTION FRACTION 55 - 60% Anatomical Region Laterality Modality Ultrasound 08/24/2023 9:04 AM CDT Narrative 08/24/2023 1:54 PM CDT ECHOCARDIOGRAM ALONSO COWART ? Accession#: ?? [id number] : ?1990 33 years Study Date: ?? 08/24/2023 9:04:28 AM Gender: M ?BP: ? 137/80 mmHg Height: 183.00 cm ?BSA: ?2.12 m? ? ? Weight: 90.00 kg ? Tech: ? MBF ? Referring MD: PADMINI KENNDEY Site: ? [facility] Reading Location: Mobile OP Patient Location: Outpatient. Procedure: 2D, Color Doppler and Spectral Doppler. Indication for study: Tetralogy of Fallot; Palpitations Cardiac Rhythm: Regular.Study quality: Good. Final Impressions: 1. History of Tetrology of Fallot status post pulmonary valvotomy at age 1. 2. Normal LV size, normal wall thickness, normal function with an estimated EF of 55 - 60%. 3. Right ventricular cavity size is mildly enlarged, global systolic RV function is normal. FAC 40%. 4. Mild pulmonic stenosis, mean gradient 17mmHg, peak gradient 27mmHg, Vmax 2.6m/s. Mild to moderate pulmonary regurgitation. 5. No intracardiac shunt identified. 6. Consider cardiac MRI to further evaluate RV size/function and degree of TX. Comparison There are no prior studies on this patient for comparison purposes. Chamber Sizes and Function Normal left ventricular size, normal wall thickness, normal global systolic function with an estimated EF of 55 - 60%. Left atrial size is normal. Left atrial pressure is normal. Right ventricular cavity size is mildly enlarged, global systolic RV function is normal. RV wall thickness is normal. The right atrium is normal. The pulmonary artery is of normal size and origin. The sinus of Valsalva is normal sized. The ascending aorta is normal sized. Valves, RV Pressures and Diastolic Function The aortic valve is normal in structure and trileaflet, no stenosis and no regurgitation. The mitral valve is normal in structure, no mitral regurgitation. Normal diastolic function. The tricuspid valve is normal in structure. Tricuspid regurgitation is trace regurgitation. The pulmonic valve is Stenotic. Mild pulmonary regurgitation. Masses, Effusion, Shunts There is no pericardial effusion. The inferior vena cava is normal sized, respiratory size variation greater than 50%. No left to right shunting was detected by limited color flow Doppler interrogation of the interatrial septum. The ratio of pulmonic flow to systemic flow (Qp/Qs ratio) is 1.49. MEASUREMENTS AND CALCULATIONS 2-D Measurements and LV Function: LVID (d) 5.1 cm LV FS% (2D) ?? 21 % LVID (s) 4.0 cm LVOT diameter 3.0 cm IVS (d) ??1.0 cm HR ?62 bpm LVPW (d) 1.0 cm LA Vol index ??31 ml/m2 Ao Sinus 3.8 cm RV Max 4C (d) 4.6 cm Asc Ao ?? 3.1 cm Diastology: Mitral ?Tissue Doppler E Peak 0.8 m/s ??e', Septum ? 0.11 m/s A Peak 0.4 m/s ??e', Lateral ?0.19 m/s E/A ?1.9 ?E/e' Average ?? 5.20 DT ? 261 msec Aortic Valve: Vmax ? 1.3 m/s ??REGI (V) ?? 5.61 cm? ? ? VTI ?0.34 m ?? REGI (I) ?? 5.55 cm? ? ? LVOT V max 1.0 m/s ??Max PG ?7 mmHg LVOT VTI ?? 0.26 m ?? Mean PG ?? 4 mmHg SV ? 189 ml ?? Dim Index 0.76 SV index ?? 89 ml/m? ? ? CO ?11.7 l/min ?CI ?5.5 l/min/m? ? ? Mitral Valve: MVA ?2.9 cm? ? ? MV P 1/2 76 msec Tricuspid Valve and estimated PA pressures: TAPSE 2.1 cm Pulmonic Valve: PV Vmax ??2.6 m/s PIEDV 1.1 m/s PV meanG 17 mmHg PV VTI ?? 0.73 m Shunt: Qp/Qs: 1.5 . Report modified by Joaquin Hassan MD on 08/24/2023 1:54:38 PM. This study was interpreted by an [facility] accredited facility. ??Final (Updated) ?? Procedure Note Joaquin Hassan MD - 08/24/2023 ECHOCARDIOGRAM ALONSO COWART : 1990 33 years Study Date: 08/24/2023 9:04:28 AM Gender: M BP: 137/80 mmHg Height: 183.00 cm BSA: 2.12 m? ? ? Weight: 90.00 kg Tech: [facility] Referring MD: PADMINI KENNEDY Site: [facility] Reading Location: Mobile OP Patient Location: Outpatient. Procedure: 2D, Color Doppler and Spectral Doppler. Indication for study: Tetralogy of Fallot; Palpitations Cardiac Rhythm: Regular.Study quality: Good. Final Impressions: 1. History of Tetrology of Fallot status post pulmonary valvotomy at age1. 2. Normal LV size, normal wall thickness, normal function with anestimated EF of 55 - 60%. 3. Right ventricular cavity size is mildly enlarged, global systolic RVfunction is normal. FAC 40%. 4. Mild pulmonic stenosis, mean gradient 17mmHg, peak gradient 27mmHg,Vmax 2.6m/s. Mild to moderate pulmonary regurgitation. 5. No intracardiac shunt identified. 6. Consider cardiac MRI to further evaluate RV size/function and degreeof TX. Comparison There are no prior studies on this patient for comparison purposes. Chamber Sizes and Function Normal left ventricular size, normal wall thickness, normal globalsystolic function with an estimated EF of 55 - 60%. Left atrial size isnormal. Left atrial pressure is normal. Right ventricular cavity size ismildly enlarged, global systolic RV function is normal. RV wall thicknessis normal. The right atrium is normal. The pulmonary artery is of normalsize and origin. The sinus of Valsalva is normal sized. The ascendingaorta is normal sized. Valves, RV Pressures and Diastolic Function The aortic valve is normal in structure and trileaflet, no stenosis and noregurgitation. The mitral valve is normal in structure, no mitralregurgitation. Normal diastolic function. The tricuspid valve is normal instructure. Tricuspid regurgitation is trace regurgitation. The pulmonicvalve is Stenotic. Mild pulmonary regurgitation. Masses, Effusion, Shunts There is no pericardial effusion. The inferior vena cava is normal sized,respiratory size variation greater than 50%. No left to right shunting wasdetected by limited color flow Doppler interrogation of the interatrialseptum. The ratio of pulmonic flow to systemic flow (Qp/Qs ratio) is1.49. MEASUREMENTS AND CALCULATIONS 2-D Measurements and LV Function: LVID (d) 5.1 cm LV FS% (2D) 21 % LVID (s) 4.0 cm LVOT diameter 3.0 cm IVS (d) 1.0 cm HR 62 bpm LVPW (d) 1.0 cm LA Vol index 31 ml/m2 Ao Sinus 3.8 cm RV Max 4C (d) 4.6 cm Asc Ao 3.1 cm Diastology: Mitral Tissue Doppler E Peak 0.8 m/s e', Septum 0.11 m/s A Peak 0.4 m/s e', Lateral 0.19 m/s E/A 1.9 E/e' Average 5.20 DT 261 msec Aortic Valve: Vmax 1.3 m/s REGI (V) 5.61 cm? ? ? VTI 0.34 m REGI (I) 5.55 cm? ? ? LVOT V max 1.0 m/s Max PG 7 mmHg LVOT VTI 0.26 m Mean PG 4 mmHg SV 189 ml Dim Index 0.76 SV index 89 ml/m? ? ? CO 11.7 l/min CI 5.5 l/min/m? ? ? Mitral Valve: MVA 2.9 cm? ? ? MV P 1/2 76 msec Tricuspid Valve and estimated PA pressures: TAPSE 2.1 cm Pulmonic Valve: PV Vmax 2.6 m/s PIEDV 1.1 m/s PV meanG 17 mmHg PV VTI 0.73 m Shunt: Qp/Qs: 1.5 . Report modified by Joaquin Hassan MD on 08/24/2023 1:54:38 PM. This study was interpreted by an [facility] accredited facility. Final (Updated) Padmini Kennedy MD ECHO ORD * TSH WITH REFLEX (08/13/2023 4:00 PM CDT) TSH 2.34 0.27 - 4.20 uIU/mL 08/13/2023 9:52 PM CDT [facility] Blood BLOOD SPECIMEN / Unknown Venipuncture / Unknown 08/13/2023 4:00 PM CDT 08/13/2023 4:00 PM CDT Narrative [facility] - 08/13/2023 9:52 PM CDT In Adults, TSH values between 5.00 and 10.00 uIU/ml do not necessarily indicate the presence of Hypothyroidism. Correlation with clinical findings such as presence of goiter and/or Thyroperoxidase (TPO) Antibody may be helpful. For more information please refer to FAN 2004; 291: 228-238. Padmini Kennedy MD CHEMISTRY [facility] [address] [place] [address], [place] * LIPID PANEL W REFLEX MEASURED LDL (08/13/2023 4:00 PM CDT) CHOLESTEROL,TOTAL 189 100 - 199 mg/dL 08/13/2023 9:52 PM CDT [facility] Comment: Cholesterol, Total Reference Ranges Desirable <200 mg/dL Borderline 200-239 mg/dL High >=240 mg/dL TRIGLYCERIDES 108 <150 mg/dL 08/13/2023 9:52 PM CDT [facility] HDL CHOLESTEROL 45 >40 mg/dL 9:52 PM CDT [facility] NON-HDL CHOLESTEROL 144 <145 mg/dl 08/13/2023 9:52 PM CDT [facility] CHOL/HDL RATIO 4.20 <4.50 08/13/2023 9:52 PM CDT [facility] LDL CHOLESTEROL 122 <=130 mg/dL 08/13/2023 9:52 PM CDT [facility] VLDL CHOLESTEROL 22 <=30 mg/dL 08/13/2023 9:52 PM CDT [facility] PROVIDER ORDERED STATUS RANDOM 08/13/2023 9:52 PM CDT [facility] Blood BLOOD SPECIMEN / Unknown Venipuncture / Unknown 08/13/2023 4:00 PM CDT 08/13/2023 4:00 PM CDT Padmini Kennedy MD CHEMISTRY [facility] [address] [place] [address], [place] * HEMOGLOBIN (08/13/2023 4:00 PM CDT) HEMOGLOBIN 14.7 13.5 - 17.5 g/dL 08/13/2023 4:04 PM CDT [facility] MCV 88 80 - 100 fL 08/13/2023 4:04 PM CDT [facility] Blood BLOOD SPECIMEN / Unknown Venipuncture / Unknown 08/13/2023 4:00 PM CDT 08/13/2023 4:00 PM CDT Padmini Kennedy MD HEMATOLOGY [facility] [address] [place] [address], * SCAN-RADIOLOGY REPORT (08/08/2023 12:00 AM CDT) [...] 10:01 AM 11/16/2005 3:05 PM Care Teams Ramp Manager Relationship Specialty Start Date End Date Padmini Kennedy MD [address] [place] [address] PCP - General Family Practice 08/11/23
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
--- OUTSIDE RECORDS SUMMARY | 2023-10-06 15:25 | XMS_ITS | Continuity of Care Document ---
Author Organization [facility] Address [address] [place] [address] Phone Care Team Providers Care Stock Receiver Name Role Phone Mallory Hanson PT Unavailable [...] Providers Copied on Encounter [facility], [address], [place], [place], [id number], [place] tel:[phone] Deb DELEON [address] No Information [address], [place], [id number], [place]. tel:[phone] Referring Provider: REFERRAL CASS MARS. Offic/outpt E&[facility] [place] [address] [facility], [address], [place], [place], [id number], [place] tel:[phone] [facility] No Information 201 3 No Information Referring Provider: REFERRAL SELF, [place]. Family History Family Member Type Diagnosis Age At Onset No Information Payers Payer name Insurance type Covered alliance party ID Authoriza chin(s) [employer] [id number] Social History Type Description Quantity Date Captured [...]
[2023-10-06 15:37] LABS: Basophils Absolute Auto 0.04 K/uL (0.00-0.30); Basophils Percent Auto 0.7 % (0.0-3.0); Eosinophils Absolute Auto 0.07 K/uL (0.00-0.50); Eosinophils Percent Auto 1.2 % (0.0-7.0); Hematocrit 41.4 % (37.0-53.0); Hemoglobin* 13.6 gm/dL (13.5-17.5); Lymphocytes Absolute Auto 1.66 K/uL (0.90-2.90); Lymphocytes Percent Auto 28.9 % (20-44); Mean Corpuscular HGB Conc 33 gm/dL (32-36); Mean Corpuscular Hemoglobin 30 pg (26-34); Mean Corpuscular Volume 90 fL (80-100); Monocytes Percent Auto 5.6 % (0.0-11.0); Neutrophils Absolute Auto 3.65 K/uL (1.7-7.0); Neutrophils Percent Auto 63.6 % (42.0-72.0); Platelet Count* 158 K/uL (140-440); RDW Coefficient of Variation % 12.4 % (11.5-15.5); Red Blood Count 4.59 m/uL (4.30-5.90); White Blood Count* 5.74 K/uL (4.50-11.00)
[2023-10-06 15:41] LABS: Slide Review Reflex No
[2023-10-06 15:50] LABS: Albumin* 4.6 g/dL (3.3-5.0); Chloride* 104 mmol/L (96-114)
[2023-10-06 15:51] LABS: Potassium* 3.5 mmol/L (3.6-5.1); Sodium* 140 mmol/L (135-149)
[2023-10-06 15:53] LABS: Creatinine* 0.8 mg/dL (0.5-1.5); Est. Creatinine Clearance* 137.27; Estimated Glomerular Filt Rate 118 ml/min
[2023-10-06 15:54] LABS: Alanine Aminotransferase* 15 U/L (4-50); Alkaline Phosphatase* 62 U/L (40-150); Anion Gap 7 mEq/L (7-15); Aspartate Amino Transferase* 21 U/L (12-35); Bilirubin Direct* 0.4 mg/dL (0.0-0.5); Blood Urea Nitrogen* 18 mg/dL (5-24); Calcium* 8.8 mg/dL (8.4-10.6); Carbon Dioxide* 29 mmol/L (20-32); Glucose* 117 mg/dL (60-115); Total Protein* 7.3 g/dL (6.0-8.3)
[2023-10-06 16:00] LABS: C Reactive Protein* < 0.5 mg/dL (0.5-1.0)
[2023-10-06 16:17] LABS: NT Pro B Type NatriureticPept* 72 pg/mL
[2023-10-06] MEDS: 0.9 % SODIUM CHLORIDE 1000 ml 1,000 ML 6000 ML IV (16:32)
[2023-10-06] MEDS: LORazepam 2 MG/ML inj 1 MG IVP (16:33)
[2023-10-06 16:35] LABS: Troponin, Point-of-Care* 0.01 ng/ml (0.01-0.04)
[2023-10-06 17:47] LABS: Troponin, Point-of-Care* 0.01 ng/ml (0.01-0.04)
== END 2023-10-06 18:10 | disposition home or self-care (01) ==
PROVIDERS: Family Medicine; Emergency Provider Emergency Medicine; PCP Family Medicine
DX: R55 Syncope and collapse (principal); F41.9 Anxiety disorder, unspecified
CPT/HCPCS: 36415; 70450; 80048; 80076; 83880; 84484; 85025; 85379; 86140; 93005; 94761; 96374; 99284; 99285; J2060; J7030